=== PATIENT | female | born 1940 | race Caucasian/White ===

== ENCOUNTER → 2016-09-28 | Outpatient (CLI) | payer MEDICARE ==
[~2016-09-28] MED LIST: ARMOUR THYROID120 M1 PO; ARMOUR THYROID15 MG PO; ARMOUR THYROID90 MG PO; ASPIRIN ADULT L81 M1 PO; ATIVAN0.5 MG PO; AUGMENTIN 500500 M1 PO; CIPRO500 MG PO; LOPRESSOR50 MG PO; METOPROLOL25 MG PO; NEURONTIN300 MG PO; NORVASC5 MG PO; PLAQUENIL200 MG PO; PLAVIX75 MG PO; PREVACID30 M1 PO; PREVACID30 MG PO; PYRIDIUM200 MG PO; VICODIN 5/500 505 MG PO; ZOFRAN4 MG PO
== END | disposition home or self-care (01) ==
LOC: CARD 02:08
DX: I71.4 Abdominal aortic aneurysm, without rupture (principal); R01.1 Cardiac murmur, unspecified; R09.89 Other specified symptoms and signs involving the circulatory and respiratory systems

== ENCOUNTER 2016-11-02 01:43 | Inpatient (IN) | payer MEDICARE ==
[~2016-11-02] VITALS: Ht 160 cm; Wt 56.2 kg
--- NOTE | ~2016-11-02 | O ---
[place], [place] OPERATIVE NOTE NAME: FRANK VELASQUEZ UNIT #: [id number] ROOM: 426 DOCTOR: ZEESHAN EDDY MD BIRTHDATE: [birth year] DOS: 11/03/2016 GASTROENDOSCOPIC REPORT INDICATIONS: The patient has presented with chief complaint of gastric abdominal pain, renal insufficiency and borderline history of anemia in the past. Elevation of lipase slightly chronically; however, at 500 levels about. With normal LFTs. PROCEDURE: Today's procedure part of investigation is panendoscopy. PREMEDICATION: Versed and Diprivan. SCOPE: Olympus folding gastroscope q 10 video. REPORT: After putting the patient in the left lateral position and after application of lubricant to the scope, the scope was introduced. Thereafter, under direct visualization, I advanced through the length of esophagus without difficulty. Gastric pouch was entered. Gastritis seen. Duodenal bulb, second and third part within normal limit. No biopsies obtained due to the fact the patient was on anticoagulants. The patient extubated, tolerated procedure well. IMPRESSION: Gastritis, status post photographic series. PLAN AND DISCUSSION: Continuation laxatives regular diet. ACTIVITY: Ad laura. FOLLOWUP: As an outpatient. ZEESHAN EDDY MD CM:OPRECORD:OPERATIVE NOTE 1410 [id number] ZEESHAN EDDY MD 11/03/16 1559 interface
--- NOTE | ~2016-11-02 | WRIGHTHP ---
[place], [place] PATIENT HISTORY AND PHYSICAL EXAM NAME: FRANK VELASQUEZ [facility] #: [id number] UNIT #: [id number] ROOM: 426 DOCTOR: JOSHUA GUNN MD BIRTHDATE: [birth year] DOS: 11/02/2016 HISTORY OF PRESENT ILLNESS: The patient is 76 years old, not known to me. The patient comes in with complaints of severe abdominal pain. The patient states that she has had abdominal pain for about 2 weeks now on and off, but yesterday, the pain was so severe she was also nauseous and has had multiple emesis, and therefore decided to come into the Emergency Room. She was worked up in the ER with the CT scan and x-rays, which did not show any abnormalities other than a large amount of stool with diverticular disease without any evidence of diverticulitis. The patient was seen in the floor shortly after being brought up from the Emergency Room but then she stated that she had no pain and did not want any more pain medications because the medicine made her sick. She does not have any fever, any chills, any shortness of breath or chest pains. PAST MEDICAL HISTORY: Significant for; 1. Last hospitalization in 2014 with acute bronchitis and chest pain. 2. History of colonoscopy in 2014 showing diverticulosis. 3. Benign hypertension. 4. Hypothyroidism. 5. Left renal artery stenosis. 6. History of rheumatoid arthritis. MEDICATIONS: She is on are aspirin 81 daily, Plavix 75 daily, gabapentin 300 at bedtime, Plaquenil 200 b.i.d., Prevacid 30 daily, lorazepam 0.5 at bedtime, metoprolol 25 b.i.d., Hatley Thyroid 90 mg daily. SOCIAL HISTORY: She lives at home. Daughter lives with her. She does not use any alcohol. Does not smoke. PHYSICAL EXAMINATION: GENERAL: The patient is quite pale. VITAL SIGNS: Graphic trend shows a pressure of 148/63, pulse of 66, respirations 20, temperature 98.6. LUNGS: Diminished breath sounds. No wheezes, rales or rhonchi heard. HEART: Regular. ABDOMEN: Soft, multiple scars from previous surgery is present. EXTREMITIES: Without any edema. LABORATORY DATA: White cell count is , hemoglobin 12.5, hematocrit 37.8. Comprehensive glucose 88, BUN 17, creatinine 1.27. Electrolytes were normal. Lipase was 555. ASSESSMENT AND PLAN: 1. The patient who presents with acute abdominal pain, elevated lipase was seen. Possible mild pancreatitis. Consultation with Dr. Moreno is obtained. The patient is to be kept n.p.o. with IV fluids, IV pain medications and Zofran for nausea. 2. Obstipation could also be one of the reasons for complaints of abdominal pain, Colace will be added. 3. Also check HIDA scan and ultrasound of the gallbladder, rule out gallbladder [place], [place] PATIENT HISTORY AND PHYSICAL EXAM NAME: [id number] UNIT #: [id number] ROOM: 426 DOCTOR: JOSHUA GUNN MD BIRTHDATE: [birth year] stones and dyskinesia. 4. History of rheumatoid arthritis. Continue Plaquenil. JOSHUA GUNN MD CM:HISPHYS:PATIENT HISTORY AND PHYSICAL EXAMINATION 0731 [id number] JOSHUA GUNN MD 11/02/16 0843 interface
--- NOTE | ~2016-11-02 | O ---
[place], [place] OPERATIVE NOTE NAME: FRANK VELASQUEZ UNIT #: [id number] ROOM: 426 DOCTOR: ZEESHAN EDDY MD BIRTHDATE: [birth year] DOS: 11/03/2016 GASTROENDOSCOPIC REPORT HISTORY OF PRESENT ILLNESS: The patient is a 76-year-old who has presented with chief complaint of epigastric abdominal pain, bloated, abdominal pain, constipation. The patient was admitted from the Emergency Room because of abdominal distention and large stool retention was identified. Also, the patient continues with symptomatology of upper GI distress. CBC, H and H was 12 and 38. Differential within normal limits. PAST MEDICAL HISTORY: Hypertension, GERD, anemia, aneurysm, infrarenal. TIA respiratory infection histories. FAMILY HISTORY: Noncontributory except coronary artery disease. SOCIAL HISTORY: Passive smoker, nonalcohol consumer. ALLERGIES: To no known medication. MEDICATION: List reviewed. PROCEDURE: Today's procedure part of investigation of the EGD and colonoscopy. PREMEDICATION: Versed and Diprivan. SCOPE: Olympus forward-viewing colonoscope 10L video. REPORT: After putting the patient in the left lateral position and after application of lubricant to the scope, the scope was introduced; thereafter, under direct visualization, advanced through the length of colon without difficulty. ____ severe diverticulosis of sigmoid colon was identified. Base of the cecum explored, appendiceal orifice identified, and ileocecal valve was defined. Scope was gradually withdrawn from ascending, transverse, descending colon. The patient extubated, tolerated procedure well. IMPRESSION: Diverticulosis of severe degree in the sigmoid colon ____ colonic contents. PLAN ON DISCUSSION: We are going to proceed with panendoscopic assessment. [place], [place] OPERATIVE NOTE NAME: FRANK VELASQUEZ UNIT #: [id number] ROOM: 426 DOCTOR: ZEESHAN EDDY MD BIRTHDATE: [birth year] ZEESHAN EDDY MD CM:OPRECORD:OPERATIVE NOTE 1410 1554 ZEESHAN EDDY MD 11/03/16 5751 interface
--- NOTE | ~2016-11-02 | PN ---
[place], [place] PROGRESS NOTE NAME: FRANK VELASQUEZ [facility] #: [id number] UNIT #: [id number] ROOM: 426 DOCTOR: JOSHUA GUNN MD BIRTHDATE: [birth year] DATE: 11/03/16 SUBJECTIVE: The patient is scheduled for endoscopy and colonoscopy today. Does not have any new complaints. She denies having any chest pains or palpitations. PHYSICAL EXAMINATION: VITAL SIGNS: Blood pressure is 149/68, pulse is 61, respirations 20, temperature 97.6. LUNGS: Clear. HEART: Regular. ABDOMEN: Soft. EXTREMITIES: Without any edema. ASSESSMENT AND PLAN: 1. The patient who presents with abdominal pain with diagnosis of obstipation. The patient is scheduled for an endoscopy, colonoscopy. 2. Mild pancreatitis. Amylase and lipase seem to be improving. Lipase was 555, which is down to 417, should be able to start on a diet and discharged to home after the scope is done. JOSHUA GUNN MD CM:PNTRANS 0727 [id number] JOSHUA GUNN MD 11/06/16 1418 ROSIE DURAN.DWAYNER
[2016-11-02 01:48] VITALS: BP 157/77
[2016-11-02] MEDS ORDERED: METOPROLOL25 MG PO (01:51)
[2016-11-02] MEDS ORDERED: ARMOUR THYROID90 M1 PO (01:53)
[2016-11-02 02:41] LABS: BILIRUBIN NEGATIVE (NEGATIVE); BLOOD NEGATIVE (NEGATIVE); CLARITY CLEAR (CLEAR); COLOR YELLOW (YELLOW); GLUCOSE NEGATIVE (NEGATIVE); KETONE NEGATIVE (NEGATIVE); LEUKO ESTERASE 1+ (NEGATIVE); NITRITE NEGATIVE (NEGATIVE); PH 6.5 (5.0-9.0); PROTEIN NEGATIVE (NEGATIVE); SPECIFIC GRAVITY <= 1.005 (1.005-1.030); UROBILINOGEN 0.2 E.U./dl (0.2-1.0)
[2016-11-02 02:42] LABS: BASO % 0.6 % (0.0-1.0); EOS # 0.3 10*3/uL (0.0-0.4); EOS % 5.5 % (1.0-4.0); HEMATOCRIT 37.8 % (37.0-47.0); HEMOGLOBIN 12.5 g/dl (12.0-16.0); LYMPH # 1.7 10*3/uL (1.3-4.4); LYMPH % 27.8 % (27.0-41.0); MEAN CORPUSCULAR HGB 27.8 pg (27.0-31.0); MEAN CORPUSCULAR HGB CONC 33.1 g/dl (33.0-37.0); MEAN PLATELET VOLUME 9.1 fl (9.6-12.3); MONO # 0.7 10*3/uL (0.1-1.0); MONO % 11.4 % (3.0-9.0); NEUT # 3.4 10*3/uL (2.3-7.9); NEUT % 54.5 % (47.0-73.0); PLATELET COUNT AUTOMATED 241 10*3/uL (130-400); RED CELL DISTRI WIDTH 13.9 % (0-14.5); WHITE BLOOD COUNT 6.2 10*3/uL (4.8-10.8)
[2016-11-02 02:47] LABS: EPITHELIAL CELLS 0-5; URINE REFLEX COMMENT YES (NO)
[2016-11-02 02:52] LABS: PROTHROMBIN TIME 10.8 SECONDS (9.0-12.4)
[2016-11-02 02:59] LABS: ALBUMIN 3.8 gm/dl (3.1-4.5); ALKALINE PHOSPHATASE 95 U/L (45-117); BILIRUBIN, TOTAL 0.3 mg/dl (0.2-1.0); BUN 17 mg/dl (7-24); CARBON DIOXIDE 27 mmol/L (21-32); CHLORIDE 103 mmol/L (98-107); EST GLOM FILT AFRICAN AMERICAN 50 ml/min; GLUCOSE 88 mg/dL (65-99); POTASSIUM 4.2 mmol/L (3.5-5.1); SGOT/AST 25 IU/L (3-35); SGPT/ALT 18 U/L (12-78); SODIUM 140 mmol/L (136-145); TOTAL PROTEIN 7.3 gm/dL (6.4-8.2)
[2016-11-02 03:00] LABS: C-REACTIVE PROTEIN < 0.29 MG/DL (0-0.3); TROPONIN I 0.026 ng/ml (<0.045)
[2016-11-02 04:58] VITALS: BP 143/73
[2016-11-02 05:30] VITALS: BP 148/63
[2016-11-02 08:00] VITALS: BP 153/50
[2016-11-02 16:00] VITALS: BP 143/50
[2016-11-02 20:00] VITALS: BP 123/54
[2016-11-03] VITALS: BP 149/68
[2016-11-03 06:10] LABS: BASO % 0.5 % (0.0-1.0); EOS # 0.2 10*3/uL (0.0-0.4); EOS % 3.2 % (1.0-4.0); HEMOGLOBIN 12.3 g/dl (12.0-16.0); LYMPH # 1.3 10*3/uL (1.3-4.4); MEAN CORPUSCULAR HGB 28.1 pg (27.0-31.0); MEAN CORPUSCULAR HGB CONC 32.4 g/dl (33.0-37.0); MONO # 0.7 10*3/uL (0.1-1.0); MONO % 10.5 % (3.0-9.0); NEUT # 4.1 10*3/uL (2.3-7.9); NEUT % 64.6 % (47.0-73.0); PLATELET COUNT AUTOMATED 222 10*3/uL (130-400); RED BLOOD COUNT 4.37 10*6/uL (4.10-5.10); RED CELL DISTRI WIDTH 13.8 % (0-14.5); WHITE BLOOD COUNT 6.3 10*3/uL (4.8-10.8)
[2016-11-03 08:00] VITALS: BP 145/53
[2016-11-03 13:53] VITALS: BP 162/65
[2016-11-03 14:05] VITALS: BP 177/64
[2016-11-03 14:18] VITALS: BP 164/67
== END 2016-11-03 14:52 | disposition home or self-care (01) | DRG 391 ==
LOC: ED 01:43 → EDHOLD 04:28 → 4E 04:28
PROVIDERS: Emergency Medicine Emergency Medical Services; Internal Medicine
PROC: 0DJD8ZZ Inspection of Lower Intestinal Tract, Via Natural or Artificial Opening Endoscopic (ICD-10-PCS; principal; 2016-11-03)
PROC: 0DJ08ZZ Inspection of Upper Intestinal Tract, Via Natural or Artificial Opening Endoscopic (ICD-10-PCS; principal; 2016-11-03)
DX: K29.70 Gastritis, unspecified, without bleeding (principal); K85.90 Acute pancreatitis without necrosis or infection, unspecified; M06.9 Rheumatoid arthritis, unspecified; I10 Essential (primary) hypertension; K59.00 Constipation, unspecified; K57.30 Diverticulosis of large intestine without perforation or abscess without bleeding; K21.9 Gastro-esophageal reflux disease without esophagitis; E03.9 Hypothyroidism, unspecified; Z79.82 Long term (current) use of aspirin; Z79.899 Other long term (current) drug therapy; Z79.01 Long term (current) use of anticoagulants

== ENCOUNTER → 2017-02-15 | Outpatient (CLI) | payer MEDICARE ==
[~2017-02-15] MED LIST changes: +ARMOUR THYROID90 M1 PO
[2017-02-15 09:58] LABS: BILIRUBIN NEGATIVE (NEGATIVE); BLOOD NEGATIVE (NEGATIVE); CLARITY CLEAR (CLEAR); COLOR YELLOW (YELLOW); GLUCOSE NEGATIVE (NEGATIVE); KETONE NEGATIVE (NEGATIVE); LEUKO ESTERASE 1+ (NEGATIVE); NITRITE NEGATIVE (NEGATIVE); PH 5.5 (5.0-9.0); PROTEIN NEGATIVE (NEGATIVE); SPECIFIC GRAVITY 1.025 (1.005-1.030); UROBILINOGEN 0.2 E.U./dl (0.2-1.0)
[2017-02-15 10:02] LABS: BASO # 0.1 10*3/uL (0.0-0.1); BASO % 0.7 % (0.0-1.0); EOS # 0.3 10*3/uL (0.0-0.4); EOS % 3.7 % (1.0-4.0); HEMATOCRIT 38.2 % (37.0-47.0); HEMOGLOBIN 12.5 g/dl (12.0-16.0); LYMPH # 1.2 10*3/uL (1.3-4.4); LYMPH % 16.6 % (27.0-41.0); MEAN CELL VOLUME 87.8 fl (81.0-99.0); MEAN CORPUSCULAR HGB 28.7 pg (27.0-31.0); MEAN CORPUSCULAR HGB CONC 32.7 g/dl (33.0-37.0); MEAN PLATELET VOLUME 9.1 fl (9.6-12.3); MONO # 0.6 10*3/uL (0.1-1.0); MONO % 8.9 % (3.0-9.0); NEUT # 4.8 10*3/uL (2.3-7.9); NEUT % 69.8 % (47.0-73.0); PLATELET COUNT AUTOMATED 237 10*3/uL (130-400); RED BLOOD COUNT 4.35 10*6/uL (4.10-5.10); RED CELL DISTRI WIDTH 13.9 % (0-14.5); WHITE BLOOD COUNT 6.9 10*3/uL (4.8-10.8)
[2017-02-15 10:05] LABS: URINE TP/CRE RATIO 0.1 (<0.21)
[2017-02-15 10:18] LABS: RBC 0-2 rbc/hpf (0-2); URINE REFLEX COMMENT YES (NO)
[2017-02-15 10:27] LABS: ALBUMIN 3.6 gm/dl (3.1-4.5); MAGNESIUM 2.3 mg/dL (1.5-2.1); POTASSIUM 4.4 mmol/L (3.5-5.1)
[2017-02-15 10:56] LABS: FERRITIN 23.7 ng/mL (10.0-291.0); PTH INTACT 71.7 pg/mL (14.0-72.0); VITAMIN D, 25-HYDROXY 27.1 ng/mL (30-100)
== END | disposition home or self-care (01) ==
LOC: LAB 09:06
PROVIDERS: Internal Medicine Nephrology
DX: N18.3 Chronic kidney disease, stage 3 (moderate) (principal); N25.81 Secondary hyperparathyroidism of renal origin; R79.89 Other specified abnormal findings of blood chemistry; D63.1 Anemia in chronic kidney disease; Z79.899 Other long term (current) drug therapy

== ENCOUNTER → 2017-03-19 | Outpatient (CLI) | payer MEDICARE ==
[2017-03-19 09:27] LABS: BASO # 0.1 10*3/uL (0.0-0.1); BASO % 0.8 % (0.0-1.0); EOS # 0.3 10*3/uL (0.0-0.4); EOS % 4.8 % (1.0-4.0); HEMATOCRIT 39.1 % (37.0-47.0); HEMOGLOBIN 12.6 g/dl (12.0-16.0); LYMPH # 1.4 10*3/uL (1.3-4.4); LYMPH % 21.2 % (27.0-41.0); MEAN CELL VOLUME 87.9 fl (81.0-99.0); MEAN CORPUSCULAR HGB 28.3 pg (27.0-31.0); MEAN CORPUSCULAR HGB CONC 32.2 g/dl (33.0-37.0); MEAN PLATELET VOLUME 8.8 fl (9.6-12.3); MONO # 0.6 10*3/uL (0.1-1.0); MONO % 9.5 % (3.0-9.0); NEUT # 4.2 10*3/uL (2.3-7.9); NEUT % 63.4 % (47.0-73.0); PLATELET COUNT AUTOMATED 278 10*3/uL (130-400); RED BLOOD COUNT 4.45 10*6/uL (4.10-5.10); RED CELL DISTRI WIDTH 13.8 % (0-14.5); WHITE BLOOD COUNT 6.6 10*3/uL (4.8-10.8)
[2017-03-19 09:45] LABS: CREATININE 1.43 mg/dL (0.55-1.02); POTASSIUM 4.4 mmol/L (3.5-5.1)
== END | disposition home or self-care (01) ==
LOC: LAB 08:50
PROVIDERS: Internal Medicine Cardiovascular Disease
DX: I10 Essential (primary) hypertension (principal)

== ENCOUNTER → 2017-06-08 | Outpatient (CLI) | payer MEDICARE ==
[2017-06-08 08:54] LABS: BASO # 0.1 10*3/uL (0.0-0.1); BASO % 0.9 % (0.0-1.0); EOS # 0.3 10*3/uL (0.0-0.4); EOS % 3.7 % (1.0-4.0); HEMATOCRIT 38.8 % (37.0-47.0); HEMOGLOBIN 12.8 g/dl (12.0-16.0); LYMPH # 1.3 10*3/uL (1.3-4.4); LYMPH % 17.9 % (27.0-41.0); MEAN CELL VOLUME 87.6 fl (81.0-99.0); MEAN CORPUSCULAR HGB 28.9 pg (27.0-31.0); MEAN PLATELET VOLUME 9.2 fl (9.6-12.3); MONO # 0.7 10*3/uL (0.1-1.0); MONO % 10.1 % (3.0-9.0); NEUT # 4.7 10*3/uL (2.3-7.9); PLATELET COUNT AUTOMATED 250 10*3/uL (130-400); RED BLOOD COUNT 4.43 10*6/uL (4.10-5.10); RED CELL DISTRI WIDTH 13.6 % (0-14.5)
[2017-06-08 09:12] LABS: ALBUMIN 3.7 gm/dl (3.1-4.5); CREATININE 1.31 mg/dL (0.55-1.02); POTASSIUM 4.7 mmol/L (3.5-5.1); TOTAL PROTEIN 7.2 gm/dL (6.4-8.2)
== END ==
LOC: LAB 08:23
PROVIDERS: Family Medicine
DX: I71.4 Abdominal aortic aneurysm, without rupture (principal); I15.1 Hypertension secondary to other renal disorders; E89.0 Postprocedural hypothyroidism; M06.9 Rheumatoid arthritis, unspecified; Z79.899 Other long term (current) drug therapy

== ENCOUNTER 2017-08-25 10:06 | Emergency (ER) | payer MEDICARE ==
[~2017-08-25] VITALS: Ht 160 cm; Wt 56.7 kg
[2017-08-25 10:26] VITALS: BP 149/62
== END 2017-08-25 13:01 | disposition home or self-care (01) ==
LOC: ED 10:06
DX: S20.212A Contusion of left front wall of thorax, initial encounter (principal); M85.88 Other specified disorders of bone density and structure, other site; M79.7 Fibromyalgia; K21.9 Gastro-esophageal reflux disease without esophagitis; I10 Essential (primary) hypertension; E03.9 Hypothyroidism, unspecified; M06.9 Rheumatoid arthritis, unspecified; Z86.73 Personal history of transient ischemic attack (TIA), and cerebral infarction without residual deficits; Z90.710 Acquired absence of both cervix and uterus; Z90.89 Acquired absence of other organs; Z87.891 Personal history of nicotine dependence; Z79.82 Long term (current) use of aspirin; Z79.899 Other long term (current) drug therapy; W07.XXXA Fall from chair, initial encounter; Y93.89 Activity, other specified; Y92.89 Other specified places as the place of occurrence of the external cause; Y99.9 Unspecified external cause status

== ENCOUNTER → 2017-08-29 | Outpatient (CLI) | payer MEDICARE ==
[2017-08-29 08:13] LABS: POTASSIUM 4.5 mmol/L (3.5-5.1)
[2017-08-29 08:25] LABS: CREATININE 1.49 mg/dL (0.55-1.02)
== END | disposition home or self-care (01) ==
LOC: LAB 07:22
PROVIDERS: Internal Medicine Cardiovascular Disease
DX: I10 Essential (primary) hypertension (principal)

== ENCOUNTER → 2017-09-28 | Outpatient (CLI) | payer MEDICARE | END | disposition home or self-care (01) | LOC: US 10:29 | DX: I65.23 Occlusion and stenosis of bilateral carotid arteries (principal) ==

== ENCOUNTER → 2017-11-26 | Outpatient (CLI) | payer MEDICARE | END | disposition home or self-care (01) | LOC: US 09:14 | DX: I71.4 Abdominal aortic aneurysm, without rupture (principal) ==

== ENCOUNTER → 2018-08-01 | Outpatient (CLI) | payer MEDICARE ==
[2018-08-01 09:39] LABS: BILIRUBIN NEGATIVE (NEGATIVE); BLOOD NEGATIVE (NEGATIVE); CLARITY SL CLOUDY (CLEAR); COLOR YELLOW (YELLOW); GLUCOSE NEGATIVE (NEGATIVE); KETONE NEGATIVE (NEGATIVE); LEUKO ESTERASE 2+ (NEGATIVE); NITRITE NEGATIVE (NEGATIVE); PH 5.5 (5.0-9.0); SPECIFIC GRAVITY 1.025 (1.005-1.030); UROBILINOGEN 0.2 E.U./dl (0.2-1.0)
[2018-08-01 10:12] LABS: BACTERIA TRACE
[2018-08-01 10:12] LABS: POTASSIUM 4.4 mmol/L (3.5-5.1)
[2018-08-01 10:20] LABS: ALBUMIN 3.5 gm/dl (3.1-4.5); CREATININE 1.36 mg/dL (0.55-1.02); PHOSPHOROUS 4.6 mg/dL (2.5-4.9)
[2018-08-01 10:23] LABS: BASO # 0.1 10*3/uL (0.0-0.1); BASO % 1.2 % (0.0-1.0); EOS # 0.4 10*3/uL (0.0-0.4); EOS % 5.5 % (1.0-4.0); HEMATOCRIT 37.6 % (37.0-47.0); HEMOGLOBIN 12.2 g/dl (12.0-16.0); LYMPH # 1.6 10*3/uL (1.3-4.4); LYMPH % 24.5 % (27.0-41.0); MEAN CELL VOLUME 90.4 fl (81.0-99.0); MEAN CORPUSCULAR HGB 29.3 pg (27.0-31.0); MEAN CORPUSCULAR HGB CONC 32.4 g/dl (33.0-37.0); MEAN PLATELET VOLUME 9.5 fl (9.6-12.3); MONO # 0.7 10*3/uL (0.1-1.0); MONO % 10.9 % (3.0-9.0); NEUT # 3.8 10*3/uL (2.3-7.9); NEUT % 57.6 % (47.0-73.0); PLATELET COUNT AUTOMATED 243 10*3/uL (130-400); RED BLOOD COUNT 4.16 10*6/uL (4.10-5.10); RED CELL DISTRI WIDTH 14.5 % (0-14.5); WHITE BLOOD COUNT 6.6 10*3/uL (4.8-10.8)
[2018-08-01 10:42] LABS: PTH INTACT 77.3 pg/mL (18.5-88.0); VITAMIN D, 25-HYDROXY 25.8 ng/mL (30-100)
== END | disposition home or self-care (01) ==
LOC: LAB 08:51
PROVIDERS: Internal Medicine Nephrology
DX: N18.3 Chronic kidney disease, stage 3 (moderate) (principal); D63.1 Anemia in chronic kidney disease; N25.81 Secondary hyperparathyroidism of renal origin; Z79.899 Other long term (current) drug therapy

== ENCOUNTER → 2019-01-23 | Outpatient (CLI) | payer MEDICARE ==
[2019-01-23 16:57] LABS: HEMATOCRIT 37.7 % (37.0-47.0); HEMOGLOBIN 12.4 g/dl (12.0-16.0)
[2019-01-23 17:22] LABS: CREATININE 1.38 mg/dL (0.55-1.02); PHOSPHOROUS 3.8 mg/dL (2.5-4.9); POTASSIUM 4.3 mmol/L (3.5-5.1)
[2019-01-23 17:23] LABS: BILIRUBIN NEGATIVE (NEGATIVE); BLOOD NEGATIVE (NEGATIVE); CLARITY CLEAR (CLEAR); COLOR YELLOW (YELLOW); GLUCOSE NEGATIVE (NEGATIVE); KETONE NEGATIVE (NEGATIVE); LEUKO ESTERASE 1+ (NEGATIVE); NITRITE NEGATIVE (NEGATIVE); PH 5.5 (5.0-9.0); SPECIFIC GRAVITY <= 1.005 (1.005-1.030); UROBILINOGEN 0.2 E.U./dl (0.2-1.0)
[2019-01-23 17:30] LABS: BACTERIA TRACE
[2019-01-23 17:35] LABS: PTH INTACT 86.1 pg/mL (18.5-88.0); VITAMIN D, 25-HYDROXY 43.9 ng/mL (30-100)
[2019-01-24 10:09] LABS: CREATININE,URINE 38.5 mg/dL (Not Estab.); MICRO ALBUMIN/CRE RATIO 12.2 (0.0-30.0)
== END | disposition home or self-care (01) ==
LOC: LAB 16:29 → US 17:00
PROVIDERS: Internal Medicine Nephrology
DX: E55.9 Vitamin D deficiency, unspecified (principal); I12.9 Hypertensive chronic kidney disease with stage 1 through stage 4 chronic kidney disease, or unspecified chronic kidney disease; N18.9 Chronic kidney disease, unspecified

== ENCOUNTER → 2019-05-22 | Outpatient (CLI) | payer MEDICARE ==
[2019-05-22 11:01] LABS: HEMATOCRIT 39.1 % (37.0-47.0); HEMOGLOBIN 12.4 g/dl (12.0-16.0)
[2019-05-22 11:21] LABS: BILIRUBIN NEGATIVE (NEGATIVE); BLOOD NEGATIVE (NEGATIVE); CLARITY CLEAR (CLEAR); COLOR YELLOW (YELLOW); GLUCOSE NEGATIVE (NEGATIVE); KETONE NEGATIVE (NEGATIVE); LEUKO ESTERASE 1+ (NEGATIVE); NITRITE NEGATIVE (NEGATIVE); PH 6.5 (5.0-9.0); SPECIFIC GRAVITY 1.025 (1.005-1.030); UROBILINOGEN 0.2 E.U./dl (0.2-1.0)
[2019-05-22 11:30] LABS: CREATININE 1.42 mg/dL (0.55-1.02); POTASSIUM 5.3 mmol/L (3.5-5.1)
[2019-05-22 11:46] LABS: PTH INTACT 82.8 pg/mL (18.5-88.0); VITAMIN D, 25-HYDROXY 55.2 ng/mL (30-100)
[2019-05-23 10:07] LABS: CREATININE,URINE 142.2 mg/dL (Not Estab.); MICRO ALBUMIN/CRE RATIO 20.3 (0.0-30.0)
== END | disposition home or self-care (01) ==
LOC: LAB 10:39
PROVIDERS: Internal Medicine Nephrology
DX: N18.3 Chronic kidney disease, stage 3 (moderate) (principal)

== ENCOUNTER → 2019-05-28 | Outpatient (CLI) | payer MEDICARE ==
[2019-05-28 12:50] LABS: CREATININE 1.46 mg/dL (0.55-1.02); POTASSIUM 4.5 mmol/L (3.5-5.1)
== END | disposition home or self-care (01) ==
LOC: LAB 11:49
PROVIDERS: Internal Medicine Nephrology
DX: N18.3 Chronic kidney disease, stage 3 (moderate) (principal)

== ENCOUNTER → 2019-08-11 | Outpatient (CLI) | payer MEDICARE ==
[2019-08-11 12:22] LABS: HEMATOCRIT 38.2 % (37.0-47.0); HEMOGLOBIN 12.3 g/dl (12.0-16.0)
[2019-08-11 12:37] LABS: CREATININE 1.49 mg/dL (0.55-1.02); PHOSPHOROUS 4.2 mg/dL (2.5-4.9); POTASSIUM 4.3 mmol/L (3.5-5.1)
[2019-08-11 12:47] LABS: BILIRUBIN NEGATIVE (NEGATIVE); BLOOD NEGATIVE (NEGATIVE); CLARITY SL CLOUDY (CLEAR); COLOR YELLOW (YELLOW); GLUCOSE NEGATIVE (NEGATIVE); KETONE NEGATIVE (NEGATIVE); LEUKO ESTERASE 1+ (NEGATIVE); NITRITE NEGATIVE (NEGATIVE); SPECIFIC GRAVITY 1.015 (1.005-1.030); UROBILINOGEN 0.2 E.U./dl (0.2-1.0)
[2019-08-11 12:48] LABS: BACTERIA TRACE; MUCOUS 1+
[2019-08-11 13:35] LABS: VITAMIN D, 25-HYDROXY 52.3 ng/mL (30-100)
[2019-08-11 13:36] LABS: PTH INTACT 75.6 pg/mL (18.5-88.0)
[2019-08-12 11:09] LABS: CREATININE,URINE 47.6 mg/dL (Not Estab.)
== END | disposition home or self-care (01) ==
LOC: LAB 11:50
PROVIDERS: Internal Medicine
DX: N18.3 Chronic kidney disease, stage 3 (moderate) (principal); E55.9 Vitamin D deficiency, unspecified; Z79.82 Long term (current) use of aspirin; Z79.899 Other long term (current) drug therapy

== ENCOUNTER → 2020-02-06 | Outpatient (CLI) | payer MEDICARE ==
[2020-02-06 07:59] LABS: HEMATOCRIT 37.4 % (37.0-47.0)
[2020-02-06 08:29] LABS: ALBUMIN 3.5 gm/dl (3.1-4.5); CREATININE 1.45 mg/dL (0.55-1.02); POTASSIUM 4.3 mmol/L (3.5-5.1)
[2020-02-07 07:09] LABS: CREATININE,URINE 103.1 mg/dL (Not Estab.)
== END | disposition home or self-care (01) ==
LOC: LAB 07:18
PROVIDERS: Internal Medicine
DX: N18.3 Chronic kidney disease, stage 3 (moderate) (principal)

== ENCOUNTER 2020-03-02 20:14 | Observation (INO) | payer MEDICARE ==
[~2020-03-02] VITALS: Ht 160 cm; Wt 60.1 kg
[2020-03-02 20:21] VITALS: BP 164/64
--- NOTE | 2020-03-02 20:29 | NUR ---
PATIENT DENIES CHEST "PRESSURE" AT THIS TIME. STATES THAT THE ASPRIN RELIEVED THE DISCOMFORT. WILL CONTINUE TO MONITOR.
[2020-03-02 20:32] LABS: BASO % 0.5 % (0.0-1.0); EOS # 0.3 10*3/uL (0.0-0.4); EOS % 3.6 % (1.0-4.0); HEMATOCRIT 34.1 % (37.0-47.0); LYMPH # 1.7 10*3/uL (1.3-4.4); MEAN CELL VOLUME 86.3 fl (81.0-99.0); MEAN CORPUSCULAR HGB 28.4 pg (27.0-31.0); MEAN CORPUSCULAR HGB CONC 32.8 g/dl (33.0-37.0); MEAN PLATELET VOLUME 8.8 fl (9.6-12.3); MONO # 0.9 10*3/uL (0.1-1.0); MONO % 11.6 % (3.0-9.0); NEUT # 4.8 10*3/uL (2.3-7.9); NEUT % 61.9 % (47.0-73.0); PLATELET COUNT AUTOMATED 328 10*3/uL (130-400); RED BLOOD COUNT 3.95 10*6/uL (4.10-5.10); RED CELL DISTRI WIDTH 13.5 % (0-14.5); WHITE BLOOD COUNT 7.7 10*3/uL (4.8-10.8)
[2020-03-02 20:43] LABS: ACT PARTIAL THROMBO TIME 28.3 SECONDS (20.0-32.1)
[2020-03-02 20:49] LABS: ALBUMIN 3.5 gm/dl (3.1-4.5); CREATININE 1.32 mg/dL (0.55-1.02); POTASSIUM 4.1 mmol/L (3.5-5.1); TOTAL PROTEIN 7.1 gm/dL (6.4-8.2)
[2020-03-02 20:53] LABS: TROPONIN I 0.134 ng/ml (<0.045)
--- NOTE | 2020-03-02 23:05 | NUR ---
PT PUT ON HER CALL LIGHT. PLACED PT ON BED DAMON AT THIS TIME. PT WAS TOLD TO PUT CNA PER DIEM TAVAREZ WHEN SHE WAS FINISHED.
[2020-03-02 23:27] VITALS: BP 157/80
[2020-03-03] VITALS (7 sets, daily range): BP systolic 138–170; BP diastolic 57–91
--- NOTE | 2020-03-03 | NUR ---
Transfer of care from Chela tsai.
--- NOTE | 2020-03-03 00:10 | NUR ---
In to see pt at this time.Pt states she is doing ok and does not need anything.Pt is normal sinus on the monitor at this time.Pt has clear lung sounds in uppers and diminshed in bases.Pt has discoloration noted to left arm and swelling from prevoius fall.Pt denines numbness and tingling at this time and has a good radial pulse.Pt has postive bowel sounds also at this time.Pt has 22 gauge which is clamped at this time in rac.Pt denines pain at this time.
--- NOTE | 2020-03-03 01:18 | NUR ---
Pt currently sleeping at this time.
--- NOTE | 2020-03-03 02:30 | NUR ---
In to see pt at this time.Pt voided moderate amount of yellow urine at this time.Per pt she does not need anything.
[2020-03-03] MEDS ORDERED: LEVOTHYROXINE137 MCG PO (03:05)
[2020-03-03] MEDS ORDERED: HYDROXYCHLOROQ200 M1 PO (03:06)
[2020-03-03] MEDS ORDERED: LINZESS 72 MCG (03:06)
[2020-03-03] MEDS ORDERED: ATORVASTATIN CA20 M1 PO (03:07)
[2020-03-03] MEDS ORDERED: CYCLOBENZAPRINE5 M3 R (03:08)
[2020-03-03] MEDS ORDERED: LINACLOTIDE 72 MCG (03:09)
[2020-03-03] MEDS ORDERED: ASPIRIN CHEWABL81 MG PO (03:16)
--- NOTE | 2020-03-03 03:30 | NUR ---
In to see pt at this time.Pt currently voided small amount of yellow urine and yari care done.Pt states she does not need anything.
--- NOTE | 2020-03-03 03:48 | NUR ---
Attempted to call consult at this time.Office stated they do not take messages at this time and to call back at 6am.
[2020-03-03 06:11] LABS: BASO # 0.1 10*3/uL (0.0-0.1); BASO % 1.1 % (0.0-1.0); EOS # 0.4 10*3/uL (0.0-0.4); EOS % 6.2 % (1.0-4.0); HEMATOCRIT 35.4 % (37.0-47.0); LYMPH # 1.4 10*3/uL (1.3-4.4); LYMPH % 22.7 % (27.0-41.0); MEAN CELL VOLUME 85.3 fl (81.0-99.0); MEAN CORPUSCULAR HGB 27.5 pg (27.0-31.0); MEAN CORPUSCULAR HGB CONC 32.2 g/dl (33.0-37.0); MEAN PLATELET VOLUME 9.1 fl (9.6-12.3); MONO # 0.8 10*3/uL (0.1-1.0); MONO % 12.3 % (3.0-9.0); NEUT # 3.5 10*3/uL (2.3-7.9); NEUT % 57.2 % (47.0-73.0); PLATELET COUNT AUTOMATED 343 10*3/uL (130-400); RED BLOOD COUNT 4.15 10*6/uL (4.10-5.10); RED CELL DISTRI WIDTH 13.2 % (0-14.5); WHITE BLOOD COUNT 6.2 10*3/uL (4.8-10.8)
--- NOTE | 2020-03-03 06:14 | NUR ---
Pt still currently sleeping at this time.
[2020-03-03 06:15] LABS: CREATININE 1.2 mg/dL (0.55-1.02)
--- NOTE | 2020-03-03 06:22 | NUR ---
Attempted to call consult at this time.Went through office and then went straight to voicemail which is not set up at this time.
[2020-03-03 06:23] LABS: THYROID STIM HORMONE (HS) 3.95 uIU/ml (0.358-4.75)
--- NOTE | 2020-03-03 06:41 | NUR ---
Pt still sleeping at this time and protonix not given at this time.
--- NOTE | 2020-03-03 07:04 | NUR ---
Transfer of care to Gisel tsai.
--- NOTE | 2020-03-03 07:05 | NUR ---
REPORT FROM JESSI PAGAN AT THIS TIME.
--- NOTE | 2020-03-03 07:55 | NUR ---
PATIENT TAKEN TO 5TH FLOOR BY THIS NURSE. NO CHANGE IN PATIENT STATUS.
--- NOTE | 2020-03-03 08:15 | NUR ---
A 80, admitted to 5E, under the services of MYLENE Dunn DO with a diagnosis of CHEST PRESSURE. Chief complaint is CHEST PRESSURE. Patient arrived via bed from ER. Monitor applied. Initial assessment completed. Vital signs taken and recorded. MYLENE DUNN DO notified of admission to the unit. Orders received. See assessment for past medical history, medications and allergies. Patient and/or family oriented to unit. [facility] visitation policy reviewed. Clothing/patient valuable form completed. JHONATAN NICHOLS
--- NOTE | 2020-03-03 08:36 | NUR ---
Sr Vice President in to talk to patient. Patient states lives at ALONE. There are MANY steps in the home. Physician: DR. PRATHER [facility] Home health services: [facility] Patient's level of ADLs: INDEPENDENT Patient has working utilities: YES DME: [facility] Follow-up physician's appointment after d/c: WILL BE MADE BY RN HOSPITALIST COORDINATOR Does patient want to access PORTAL?: NO Discharge plan JACK MACHINE OPERATOR SPOKE TO THE PATIENT. PATIENT STATED THAT SHE LIVES AT HOME ALONE WITH HER DAUGHTER CHECKING IN ON HER FREQUENTLY. PATIENT STATES THAT SHE STILL DRIVES AND HAS BEEN INDEPENDENT WITH ADLS/IADLS. PATIENT STATED THAT PRIOR TO THIS ADMISSION SHE HAD 2 FALLS WITHIN AN HOUR OF EACH OTHER. PATIENT THEN WENT TO [facility] FOR A HEART CATH, BUT SHE STATED THEY WERE FOCUSING ON HER SHOULDER. PATIENT STATED THE DOCTOR ALSO REMOVED ALL HER BLOOD PRESSURE MEDICATIONS. PATIENT STATES SHE CURRENTLY HAS [facility] (RNS,PT/OT, AND AIDES). WHEN THE PATIENT WAS ASKED IF SHE WOULD LIKE TO GO TO SNF VS HOME WITH HH, THE PATIENT STATED SHE WOULD RETURN HOME WITH RESUMPTION OF [facility]. PATIENT STATED SHE WILL HAVE A RIDE UPON DISCHARGE. CASE MANAGEMENT TO FOLLOW. CORA MANE
--- NOTE | 2020-03-03 09:39 | NUR ---
DR. MILLER NOTIFIED OF CONSULT.
--- NOTE | 2020-03-03 22:34 | NUR ---
PATIENT REQUESTING TYLENOL FOR COMPLAINTS OF HEADACHE. MEDICATED AT THIS TIME. WILL CONTINUE TO MONITOR.
[2020-03-04] VITALS: BP 153/63
--- NOTE | 2020-03-04 00:30 | NUR ---
PATIENT SLEEPING, NO SIGNS OF DISTRESS. WILL CONTINUE TO MONITOR.
--- NOTE | 2020-03-04 07:28 | NUR ---
PATIENT GIVEN WASH CLOTHES AND TOWELS TO GET WASHED UP
--- NOTE | 2020-03-04 07:54 | NUR ---
IN TO SEE PATIENT REGARDING CONSULT.
[2020-03-04 08:00] VITALS: BP 160/61
--- NOTE | 2020-03-04 09:20 | NUR ---
TYLENOL GIVEN PER PRN ORDER FOR C/O HEADACHE. BP STABLE. WILL MONITOR EFFECTIVENESS.
--- NOTE | 2020-03-04 10:17 | NUR ---
ATTEMPTED TO REACH REGARDING DISCHARGE. NO ANSWER AT THIS TIME. WILL TRY AGAIN SHORTLY.
--- NOTE | 2020-03-04 11:10 | NUR ---
ACCOUNT EXECUTIVE METALWORKING SPOKE WITH THE PATIENT AT BEDSIDE. PATIENT STATED THAT SHE HAS NO NEW NEEDS TO ADDRESS AT THIS TIME. PATIENT STATED SHE WILL RETURN HOME AND RESUME HER [facility].
[2020-03-04 12:00] VITALS: BP 148/61
--- NOTE | 2020-03-04 14:13 | NUR ---
ACADEMIC GUIDANCE SPECIALIST FAXED RESUMPTION ORDER TO [facility].
--- NOTE | 2020-03-04 15:53 | NUR ---
Discharge instructions reviewed with patient/family. Patient receptive and verbalizes understanding. Follow-up care arranged. Written instructions given to patient/family. DARREN JONES.
== END 2020-03-04 15:53 | disposition home or self-care (01) ==
LOC: ED 20:14 → EDHOLD 22:07 → 5E 03-03 07:21
PROVIDERS: Emergency Medicine; Student in an Organized Health Care Education/Training Program; ADMIT Internal Medicine
DX: R07.89 Other chest pain (principal); E87.1 Hypo-osmolality and hyponatremia; R79.89 Other specified abnormal findings of blood chemistry; D64.9 Anemia, unspecified; E03.9 Hypothyroidism, unspecified; M06.9 Rheumatoid arthritis, unspecified; M79.7 Fibromyalgia; K21.9 Gastro-esophageal reflux disease without esophagitis; I12.9 Hypertensive chronic kidney disease with stage 1 through stage 4 chronic kidney disease, or unspecified chronic kidney disease; N18.3 Chronic kidney disease, stage 3 (moderate); R00.1 Bradycardia, unspecified

== ENCOUNTER 2020-03-26 18:11 | Inpatient (IN) | payer MEDICARE ==
[~2020-03-26] VITALS: Ht 160 cm; Wt 58.6 kg
[~2020-03-26 18:11] MED LIST changes: +ASPIRIN CHEWABL81 MG PO; +ATORVASTATIN CA20 M1 PO; +CYCLOBENZAPRINE5 M3 R; +HYDROXYCHLOROQ200 M1 PO; +LEVOTHYROXINE137 MCG PO; +LINACLOTIDE 72 MCG; +LINZESS 72 MCG
[2020-03-26 18:18] VITALS: BP 164/76
[2020-03-26 19:04] VITALS: BP 151/79
[2020-03-26 19:13] LABS: HEMATOCRIT 41.7 % (37.0-47.0); MEAN CELL VOLUME 86.2 fl (81.0-99.0); MEAN CORPUSCULAR HGB 28.5 pg (27.0-31.0); MEAN CORPUSCULAR HGB CONC 33.1 g/dl (33.0-37.0); MEAN PLATELET VOLUME 8.8 fl (9.6-12.3); PLATELET COUNT AUTOMATED 198 10*3/uL (130-400); RED BLOOD COUNT 4.84 10*6/uL (4.10-5.10); RED CELL DISTRI WIDTH 14.6 % (0-14.5)
[2020-03-26 19:27] LABS: ACT PARTIAL THROMBO TIME 29.2 SECONDS (20.0-32.1); INTERNATIONAL NORM RATIO 1.1 (2.0-3.5)
[2020-03-26 19:29] LABS: ALBUMIN 3.6 gm/dl (3.1-4.5); CREATININE 1.41 mg/dL (0.55-1.02); POTASSIUM 4.4 mmol/L (3.5-5.1); TOTAL PROTEIN 7.3 gm/dL (6.4-8.2)
[2020-03-26 19:34] LABS: BURR CELLS FEW; PLATELET SUFFICIENCY NORMAL (NORMAL); TOTAL CELLS COUNTED 100 #CELLS; TROPONIN I 0.62 ng/ml (<0.045)
--- NOTE | 2020-03-26 19:37 | NUR ---
PT UP TO USE BEDSIDE COMMODE. PT STATES "I JUST DON'T FEEL WELL AT ALL." PT VOIDED 150CC OF URINE. PT BACK TO BED WITH SIDERAILS UP X2 AND CALL LIGHT WITHIN REACH
[2020-03-26 20:03] LABS: BACTERIA TRACE; BILIRUBIN NEGATIVE; BLOOD NEGATIVE (NEGATIVE); CLARITY CLEAR (CLEAR); COLOR YELLOW (YELLOW); GLUCOSE NEGATIVE; KETONE 1+; LEUKO ESTERASE NEGATIVE (NEGATIVE); NITRITE NEGATIVE (NEGATIVE); RBC 0-2 rbc/hpf (0-2); SPECIFIC GRAVITY 1.015 (1.001-1.030); WBC 0-2 wbc/hpf (0-5)
[2020-03-26 20:17] VITALS: BP 160/82
--- NOTE | 2020-03-26 20:43 | NUR ---
PT RESTING IN BED WITH EYES CLOSED. NO ACUTE DISTRESS AT THIS TIME. RESPS EASY AND NON LABORED.
[2020-03-26 21:55] VITALS: BP 158/80
--- NOTE | 2020-03-26 21:55 | NUR ---
A 80, admitted to , under the services of NIMESH Anderson DO with a diagnosis of HYPONATREMIA, NSTEMI, GENERALIZED WEAKNESS. Chief complaint is MULTIPLE COMPLAINTS. Patient arrived via bed from ER. Monitor applied. Initial assessment completed. Vital signs taken and recorded. NIMESH ANDERSON DO notified of admission to the unit. Orders received. See assessment for past medical history, medications and allergies. Patient and/or family oriented to unit. [address] visitation policy reviewed. Clothing/patient valuable form completed. NO WOUNDS ON ADMISSION. SKIN WDI. PEREZ ROBERTS
--- NOTE | 2020-03-26 22:00 | NUR ---
PT RESTING IN BED WITH DAUGHTER AT BEDSIDE. IN NO ACUTE DISTRESS. SIDERAILS UP X2. CALL LIGHT WITHIN REACH
--- NOTE | 2020-03-26 23:18 | NUR ---
NEW PATIENT CONSULT CALLED INTO DR WEST. STATES THAT DR LANDRY WILL SEE THE PATIENT IN THE MORNING. NO NEW ORDERS.
--- NOTE | 2020-03-26 23:52 | NUR ---
PT UNSURE OF HOME MEDICATIONS. STATES THAT WE CAN CALL DAUGHTER ANTONIETA AT [phone]. WILL RELAY TO AM NURSE. NOT SURE IF SHE WILL BE UP AT THIS TIME.
[2020-03-27] VITALS: BP 168/66
--- NOTE | 2020-03-27 00:03 | NUR ---
DR LERMA NOTIFIED OF PATIENTS DIFFICULTY SWALLOWING.
--- NOTE | 2020-03-27 00:15 | NUR ---
DR LERMA STATES ITS OKAY FOR PATIENT NOT TO DRINK THE ORAL CONTRAST. PT WILL BE UNABLE TO DRINK IT DUE TO DIFFICULTY SWALLOWING AND DRY HEAVES,
--- NOTE | 2020-03-27 04:24 | NUR ---
ZOFRAN ADMINISTERED FOR PT C/O NAUSEA WITH DRY HEAVES.
[2020-03-27 05:55] LABS: HEMATOCRIT 36.5 % (37.0-47.0); MEAN CELL VOLUME 84.9 fl (81.0-99.0); MEAN CORPUSCULAR HGB 28.6 pg (27.0-31.0); MEAN CORPUSCULAR HGB CONC 33.7 g/dl (33.0-37.0); MEAN PLATELET VOLUME 9.2 fl (9.6-12.3); PLATELET COUNT AUTOMATED 175 10*3/uL (130-400); RED CELL DISTRI WIDTH 14.6 % (0-14.5); WHITE BLOOD COUNT 7.9 10*3/uL (4.8-10.8)
[2020-03-27 06:22] LABS: ALBUMIN 3.2 gm/dl (3.1-4.5); CREATININE 1.29 mg/dL (0.55-1.02); POTASSIUM 4.1 mmol/L (3.5-5.1); TOTAL PROTEIN 6.6 gm/dL (6.4-8.2)
[2020-03-27 06:28] LABS: FREE T4 1.79 ng/dl (0.76-1.46); THYROID STIM HORMONE (HS) 1.36 uIU/ml (0.358-4.75)
--- NOTE | 2020-03-27 06:29 | NUR ---
APTT 97.9, HEPARING ON HOLD UNTIL 729, DECREASED TO 9 U/KG/HR PER POLICY.
[2020-03-27 06:45] LABS: ACANTHOCYTES FEW; BURR CELLS MODERATE; PLATELET SUFFICIENCY NORMAL (NORMAL); TOTAL CELLS COUNTED 100 #CELLS
--- NOTE | 2020-03-27 07:46 | NUR ---
HEPARIN DRIP RESTARTED AT THIS TIME AT 9U/KG.HR PER POLICY AT 5.3ML/HR.
[2020-03-27 07:53] LABS: VITAMIN D, 25-HYDROXY 51.4 ng/mL (30-100)
[2020-03-27 08:00] VITALS: BP 146/74
--- NOTE | 2020-03-27 08:03 | NUR ---
DAUGHTER CALLED, UPDATED ON STATUS. SHE INFORMED ME THAT THE PT FOLLOWS WITH AND FOR CARDIO REASONS. REQUESTED TO HAVE THEM CARE FOR THE PT INSTEAD OF . REQUESTED CHANGE FROM DR.K MILLER WITH THE PRIMARY TEAM. NEW ORDERS REC'D TO HAVE DR.C MILLER CONSULTED AND CANCEL THE CONSULT FOR [facility].
--- NOTE | 2020-03-27 08:08 | NUR ---
NOTIFIED OF CONSULT. SAID HE WOULD SEE THE PT TODAY.
[2020-03-27] MEDS ORDERED: HYDROXYCHLOROQ200 M1 PO (10:29)
[2020-03-27] MEDS ORDERED: VITAMIN D350 MC2 PO (10:30)
[2020-03-27] MEDS ORDERED: HYDRALAZINE HYD50 MG PO (10:31)
[2020-03-27 12:00] VITALS: BP 138/60
--- NOTE | 2020-03-27 12:00 | NUR ---
LAB CALLED WITH CRITICAL APTT OF 71.3. ON HEPARIN DRIP, NO CHANGE PER POLICY NEEDED. NOTIFIED.
--- NOTE | 2020-03-27 12:13 | NUR ---
MERCHANDISER-S in to talk to patient who was sleeping soundly. Phoned pt's daughter Samra English. Patient states lives at home with daughter staying with her. There are 0 steps in the home. Physician: Dr Rodriguez Pharmacy: [facility] Home health services: [facility] Patient's level of ADLs: MODERATE ASSIST Patient has working utilities: yes DME: walker, cane, high rise commode seat. Samra is purchasing showerchair for pt Follow-up physician's appointment after d/c: will need scheduled Does patient want to access PORTAL?: no Discharge plan Pt resides in her own home with her daughter Samra English staying with her since pt fell 02/17/20. Pt has [facility] for VNA/PT/OT and will resume those services. Pt does have a two story home but is only using the first floor. Anticipate no additional discharge needs beyond resuming home health services. VIRI ALCANTARA
--- NOTE | 2020-03-27 14:40 | NUR ---
CONTINUES TO REST WITH EASE. SLEEPING, EASILY AROUSED. CALL LIGHT IN REACH. IVF AND HEPARIN INFUSING PER ORDERS/POLICY. BED ALARM ON. NO VOICED COMPLAINTS AT THIS TIME.
[2020-03-27 16:00] VITALS: BP 150/66
[2020-03-27 20:00] VITALS: BP 139/77
--- NOTE | 2020-03-27 21:07 | NUR ---
DR MILLER ON FLOOR. HE TOLD ME THAT HE CHANGED PATIENT'S METOPROLOL TO 50 MG BID. I NOTIFIED HIM THAT I ALREADY GAVE THE PATIENT HER 25MG DOSE EARLIER. HE STATED TO GO AHEAD AND GIVE HER 25MG MORE OF METOPROLOL TO EQUAL 50MG. WILL ADMINISTER MEDICATION PER DR ARMSTRONG.
--- NOTE | 2020-03-27 23:01 | NUR ---
24 HR chart check completed.
[2020-03-28] VITALS: BP 127/56
[2020-03-28 01:55] VITALS: BP 158/72
--- NOTE | 2020-03-28 01:56 | NUR ---
WENT IN TO CHECK ON PATIENT. SHE WAS SHIVERING AND STATED SHE WAS COLD. I GOT HER ANOTHER BLANKET AND CHECKED HER TEMP AND IT READ 98.1 F ORALLY. ALL VSS. NO OTHER COMPLAINTS. HELPED PATIENT ONTO BEDPAN. SHE VOIDED 100 CC. HELPED PATIENT GET COVERED BACK UP. I TOLD PATIENT I WOULD CHECK IN ON HER IN ABOUT 15 MINUTES TO SEE IF SHE WAS WARMED UP. WILL REASSESS PATIENT SOON.
--- NOTE | 2020-03-28 02:16 | NUR ---
PATIENT'S TEMP RECTALLY IS 101.[address] LERMA. SHE STATED SHE WAS GOING TO PUT ORDERS IN.
--- NOTE | 2020-03-28 02:23 | NUR ---
TYLENOL GIVEN FOR TEMPERATE OF 101.7 RECTALLY. WILL ASSESS EFFECTIVENESS.
[2020-03-28 02:54] LABS: HEMATOCRIT 37.7 % (37.0-47.0); MEAN CELL VOLUME 85.1 fl (81.0-99.0); MEAN CORPUSCULAR HGB 28.2 pg (27.0-31.0); MEAN CORPUSCULAR HGB CONC 33.2 g/dl (33.0-37.0); MEAN PLATELET VOLUME 9.2 fl (9.6-12.3); PLATELET COUNT AUTOMATED 182 10*3/uL (130-400); RED BLOOD COUNT 4.43 10*6/uL (4.10-5.10); RED CELL DISTRI WIDTH 14.5 % (0-14.5); WHITE BLOOD COUNT 6.8 10*3/uL (4.8-10.8)
[2020-03-28 03:06] LABS: ALBUMIN 3.3 gm/dl (3.1-4.5); CREATININE 1.42 mg/dL (0.55-1.02)
--- NOTE | 2020-03-28 03:20 | NUR ---
PATIENT'S TEMP 100.3 RECTALLY.
[2020-03-28 03:22] LABS: PLATELET SUFFICIENCY NORMAL (NORMAL); TOTAL CELLS COUNTED 100 #CELLS
[2020-03-28 06:08] LABS: BASO % 0.3 % (0.0-1.0); EOS % 0.2 % (1.0-4.0); HEMATOCRIT 33.6 % (37.0-47.0); LYMPH # 0.3 10*3/uL (1.3-4.4); LYMPH % 5.1 % (27.0-41.0); MEAN CELL VOLUME 84.4 fl (81.0-99.0); MEAN CORPUSCULAR HGB 28.9 pg (27.0-31.0); MEAN CORPUSCULAR HGB CONC 34.2 g/dl (33.0-37.0); MEAN PLATELET VOLUME 9.5 fl (9.6-12.3); MONO # 0.3 10*3/uL (0.1-1.0); MONO % 4.6 % (3.0-9.0); NEUT # 5.6 10*3/uL (2.3-7.9); NEUT % 89.3 % (47.0-73.0); PLATELET COUNT AUTOMATED 158 10*3/uL (130-400); RED BLOOD COUNT 3.98 10*6/uL (4.10-5.10); RED CELL DISTRI WIDTH 14.5 % (0-14.5); WHITE BLOOD COUNT 6.3 10*3/uL (4.8-10.8)
[2020-03-28 06:39] LABS: ALBUMIN 2.9 gm/dl (3.1-4.5); POTASSIUM 3.9 mmol/L (3.5-5.1)
[2020-03-28 06:41] LABS: CREATININE 1.42 mg/dL (0.55-1.02); TOTAL PROTEIN 6.1 gm/dL (6.4-8.2)
--- NOTE | 2020-03-28 06:52 | NUR ---
RECIEVED CRITICAL APTT OF 64.2. WILL ADJUST HEPARIN DRIP ACCORDING TO PROTOCOL. DR LERMA NOTIFIED.
--- NOTE | 2020-03-28 06:55 | NUR ---
NO CHANGE IN HEPARIN DRIP PER POLICY. APTT 64.2
--- NOTE | 2020-03-28 06:55 | NUR ---
NOTIFIED PATIENT THAT WE NEED TO GET A URINE ON HER. PATIENT DOES NOT HAVE TO VOID AT THIS TIME BUT SHE VERBALIZED UNDERSTANDING.
[2020-03-28 08:00] VITALS: BP 138/70
--- NOTE | 2020-03-28 11:29 | NUR ---
PT TRANSFERED TO [facility]. PLACED IN ISOLATION. NOVEL CORONAVIRUS SWAB SENT PER ORDER.
[2020-03-28 12:00] VITALS: BP 106/40
--- NOTE | 2020-03-28 12:31 | NUR ---
PT RESTING. NO ACUTE DISTRESS NOTED.
[2020-03-28 13:06] LABS: HEP B CORE AB, IGM Negative (Negative); HEPATITIS B SURFACE AG Negative (Negative); HEPATITIS C VIRUS ANTIBODY <0.1 s/co (0.0-0.9)
--- NOTE | 2020-03-28 14:13 | NUR ---
SPOKW WITH PT AND PT'S DAUGHTER R/T GETTING RECORDS FROM [facility] REGARDING RECENT HEART CATH AND ECHO.
--- NOTE | 2020-03-28 15:51 | NUR ---
24 HR chart check completed.
[2020-03-28 16:00] VITALS: BP 145/87
--- NOTE | 2020-03-28 16:00 | NUR ---
RESTING IN BED WITH NO ACUTE DISTRESS NOTED. RESPIRATIONS EASY. LUNGS DIMINISHED. PULSE OX 98% RA. CLAIMS NON-PROD COUGH. CALL LIGHT WITHIN REACH. NO VOICED COMPLAINTS
[2020-03-28 17:04] LABS: BILIRUBIN NEGATIVE; BLOOD NEGATIVE (NEGATIVE); CLARITY CLEAR (CLEAR); COLOR YELLOW (YELLOW); GLUCOSE NEGATIVE; KETONE NEGATIVE; LEUKO ESTERASE NEGATIVE (NEGATIVE); NITRITE NEGATIVE (NEGATIVE); PH 5.5 (4.5-8.0); SPECIFIC GRAVITY 1.015 (1.001-1.030)
[2020-03-28 17:10] LABS: BACTERIA 2+; RBC 0-2 rbc/hpf (0-2)
--- NOTE | 2020-03-28 18:06 | NUR ---
REQUESTED AND RECEIVED TYLENOL PER PRN ORDER FOR COMPLAINTS OF HEADACHE RATING A 5 AND "CHILLS" PER PT. TEMP 98.3, DECLINES RECTAL TEMP. WILL MONITOR
--- NOTE | 2020-03-28 18:55 | NUR ---
STATES EARLIER TYLENOL "HELPING". CALL LIGHT WITHIN REACH. NO FURTHER VOICED COMPLAINTS
[2020-03-28 20:00] VITALS: BP 142/62
--- NOTE | 2020-03-28 20:00 | NUR ---
PATIENT RESTING IN BED. VOICES NO CONCERNS. ASSESSMENT COMPLETE. RESPS EASY AND REGULAR ON RA. DENIES ANY SOB. VSS. CALL LIGHT IN REACH.
--- NOTE | 2020-03-28 22:53 | NUR ---
24 HR chart check completed.
[2020-03-29] VITALS: BP 113/49
--- NOTE | 2020-03-29 05:45 | NUR ---
PER OK TO CANCEL APPT D/T PATIENT NO LONGER BEING ON HEPARIN DRIP.
[2020-03-29 07:38] LABS: BASO % 0.2 % (0.0-1.0); HEMATOCRIT 36.3 % (37.0-47.0); LYMPH # 0.4 10*3/uL (1.3-4.4); LYMPH % 8.1 % (27.0-41.0); MEAN CELL VOLUME 85.6 fl (81.0-99.0); MEAN CORPUSCULAR HGB CONC 33.9 g/dl (33.0-37.0); MEAN PLATELET VOLUME 9.6 fl (9.6-12.3); MONO # 0.4 10*3/uL (0.1-1.0); MONO % 8.3 % (3.0-9.0); NEUT # 4.2 10*3/uL (2.3-7.9); NEUT % 82.8 % (47.0-73.0); PLATELET COUNT AUTOMATED 155 10*3/uL (130-400); RED BLOOD COUNT 4.24 10*6/uL (4.10-5.10); RED CELL DISTRI WIDTH 14.6 % (0-14.5); WHITE BLOOD COUNT 5.1 10*3/uL (4.8-10.8)
--- NOTE | 2020-03-29 07:41 | NUR ---
Occupational therapy order and nursing screen received. Will follow up with the patient for completion of an OT evaluation. Thank you. Marietta Reddy, OTR/L
--- NOTE | 2020-03-29 07:55 | NUR ---
PHYSICAL THERAPY Screen and PT eval received will follow. Thank you. Antonino Lewis SPT Nidia cK PT
[2020-03-29 08:02] LABS: CREATININE 1.66 mg/dL (0.55-1.02); POTASSIUM 3.7 mmol/L (3.5-5.1); TOTAL PROTEIN 6.6 gm/dL (6.4-8.2)
--- NOTE | 2020-03-29 08:54 | NUR ---
SPEECH PATHOLOGY Orders for swalowing evaluation received and chart review completed. Patient is currently NPO as she is scheduled for testing. Will attempt assessment at a later time. Thank you for this referral. TENZIN SCOTT MSCCC-PIT RECORDER
[2020-03-29 09:19] VITALS: BP 149/62
[2020-03-29 11:07] VITALS: BP 166/68
--- NOTE | 2020-03-29 11:11 | NUR ---
BP 168/66, NOTIFIED ROUTINE CARDIAC MEDS WERE JUST GIVEN. WILL MONITOR FOR EFFECTIVENESS.
--- NOTE | 2020-03-29 11:27 | NUR ---
ECHO BEING DONE AT THIS TIME.
--- NOTE | 2020-03-29 14:38 | NUR ---
SPEECH PATHOLOGY Clinician consulted with patient's nurse this pm who reported that patient remains NPO as medical testing has not yet been completed. Due to this, evaluation of swallowing is unable to be completed at this time. Will attempt again tomorrow. Thank you for this referral. TENZIN SCOTT MSCCC-GERIATRIC PHYSICIAN
--- NOTE | 2020-03-29 15:41 | NUR ---
PORTABLE ULTRASOUND OF ABD BEING DONE NOW.
[2020-03-29 16:00] VITALS: BP 134/81
[2020-03-29 20:00] VITALS: BP 146/73
--- NOTE | 2020-03-29 20:00 | NUR ---
PATIENT RESTING IN BED. VOICES NO CONCERNS AT THIS TIME. VSS. POX 100% ON RA. RESPS EASY AND REGULAR. DENIES ANY SOB OR PAIN. ASSESSMENT COMPLETE. ASSISTED PATIENT WHILE SHE BRUSHED HER TEETH AND WASHED OFF BEFORE BED. REPOSITIONED IN BED FOR COMFORT. BED ALARM ON. CALL LIGHT IN REACH.
[2020-03-30] VITALS: BP 155/66
--- NOTE | 2020-03-30 02:13 | NUR ---
24 HR chart check completed.
--- NOTE | 2020-03-30 02:51 | NUR ---
PATIENT MEDICATED WITH PRN TYLENOL AT THIS TIME PER PATIENT REQUEST FOR CO A HEADACHE. WILL ASSESS EFFECTIVENESS. BED ALARM ON. CALL LIGHT IN REACH.
--- NOTE | 2020-03-30 03:51 | NUR ---
PATIENT SLEEPING. TYLENOL APPEARS EFFECTIVE.
[2020-03-30 06:19] LABS: BASO % 0.3 % (0.0-1.0); EOS % 0.2 % (1.0-4.0); HEMATOCRIT 34.7 % (37.0-47.0); LYMPH # 0.5 10*3/uL (1.3-4.4); LYMPH % 7.7 % (27.0-41.0); MEAN CORPUSCULAR HGB 29.1 pg (27.0-31.0); MEAN CORPUSCULAR HGB CONC 34.6 g/dl (33.0-37.0); MEAN PLATELET VOLUME 9.6 fl (9.6-12.3); MONO # 0.5 10*3/uL (0.1-1.0); MONO % 7.9 % (3.0-9.0); NEUT # 5.2 10*3/uL (2.3-7.9); NEUT % 83.1 % (47.0-73.0); PLATELET COUNT AUTOMATED 141 10*3/uL (130-400); RED BLOOD COUNT 4.13 10*6/uL (4.10-5.10); RED CELL DISTRI WIDTH 14.7 % (0-14.5); WHITE BLOOD COUNT 6.2 10*3/uL (4.8-10.8)
[2020-03-30 06:38] LABS: ALBUMIN 2.9 gm/dl (3.1-4.5); CREATININE 1.45 mg/dL (0.55-1.02); POTASSIUM 3.6 mmol/L (3.5-5.1); TOTAL PROTEIN 6.2 gm/dL (6.4-8.2)
[2020-03-30 08:00] VITALS: BP 135/69
--- NOTE | 2020-03-30 09:00 | NUR ---
case management talked with patient's daughter regarding a discharge plan, daughter stated patient lives at home with her, she states she is currently living at home with her and has [employer] [facility], discussed a short term intermediate for rehab with daughter and she declined, she stated she would like patient to return home with her and continue her current home health company, case management will notify [facility] when patient is discharged, daughter denies any other home needs
[2020-03-30 12:00] VITALS: BP 126/85
[2020-03-30 16:00] VITALS: BP 139/55
--- NOTE | 2020-03-30 16:02 | NUR ---
SPEECH PATHOLOGY Clinical swallowing evaluation completed due to difficulty swallowing. Patient is currently in isolation pending results of COVID testing. Patient has been experiencing elevated temps. Medical hx includes hyponatremia, NSTEMI, TIA, GERD, HTN, kidney disese. She currently receives a regular diet and thin liquid. Patient was seen this pm, alert and cooperative with generalized weakness. She endorsed difficulty swallowing and stated that she has to eat slowly and take small bites/sips and rinse foods with liquids. She was assessed with puree, coarse solid and thin liquid. Patient displayed no overt difficulty with any consistency but did implement precautions as mentioned above. Recommend she remain on present diet with continued use of safe swallow precautions and order soft, moist foods. No follow up therapy is warranted as patient tolerates diet and independently uses safety precautions. Patient does not require MBS at this time. Results and jennifer. were shared with patient and her nurse and they verbalized understanding. Refer to report in [employer] for further information. Thank you for this referral. TENZIN SCOTT MSCCC-AIRCRAFT REFUELER
[2020-03-30] MEDS ORDERED: METOPROLOL TART50 M1 PO (16:26)
--- NOTE | 2020-03-30 19:00 | NUR ---
Discharge instructions reviewed with patient/family. Patient receptive and verbalizes understanding. Follow-up care arranged. Written instructions given to patient/family. JESSI JARRELL
--- NOTE | 2020-03-30 20:16 | NUR ---
AT THIS TIME PATIENTS DAUGHTER CALLED TO DISCUSS DISCHARGE PAPERWORK. THE PATIENTS DAUGHTER WAS INQUIRING ABOUT WHY HER METOPROLOL WAS INCREASED AND WHY HER ALDACTONE WAS NOT EVEN LISTED A MEDICATION TO TAKE. LIST PROVIDED BY PATIENTS DAUGHTER INCLUDED ALDACTONE, BUT WAS NOT INCLUDED ON THE MED REC. SPOKE WITH THE PATIENT ABOUT THE INCREASE IN METOPROLOL AND IN A DOCTORS NOTE IT WAS NOTED THAT SHE WAS TACHYCARDIC AND THAT IS WHY THE MEDICATION WAS INCREASED. SPOKE WITH DR. BRADY ABOUT THE ALDACTONE PATIENTS DAUGHTER WANTS TO KNOW IF SHE SHOULD GIVE IT OR NOT. DR. BRADY LOOKED AT THIS TIME AT THE PATIENTS CHART AND NOTED THAT HER BLOOD PRESSURE MEDICATION WAS STABLE WITHOUT THE MEDICATION AND RECOMMENED THIS NURSE TELL THE DAUGHTER TO WAIT UNTIL SHE SEES HER PCP TO DISCUSS WHETHER SHE SHOULD TAKE IT OR NOT. THIS WAS RELAYED TO THE DAUGHTER AND THE DAUGHTER STATED THAT SHE WOULD JUST CALL THE PCP IN THE MORNING.
== END 2020-03-30 19:00 | disposition home health service (06) | DRG 280 ==
LOC: ED 18:11 → EDHOLD 21:06 → 4E 21:06
PROVIDERS: Emergency Medicine; Hospitalist; Internal Medicine; Student in an Organized Health Care Education/Training Program; ADMIT Student in an Organized Health Care Education/Training Program; ATTEND Student in an Organized Health Care Education/Training Program
DX: I21.4 Non-ST elevation (NSTEMI) myocardial infarction (principal); N17.0 Acute kidney failure with tubular necrosis; G93.41 Metabolic encephalopathy; E87.1 Hypo-osmolality and hyponatremia; N18.3 Chronic kidney disease, stage 3 (moderate); M79.7 Fibromyalgia; I71.4 Abdominal aortic aneurysm, without rupture; K21.9 Gastro-esophageal reflux disease without esophagitis; M06.9 Rheumatoid arthritis, unspecified; M47.812 Spondylosis without myelopathy or radiculopathy, cervical region; E89.0 Postprocedural hypothyroidism; E78.5 Hyperlipidemia, unspecified; R73.9 Hyperglycemia, unspecified; I12.9 Hypertensive chronic kidney disease with stage 1 through stage 4 chronic kidney disease, or unspecified chronic kidney disease; E87.8 Other disorders of electrolyte and fluid balance, not elsewhere classified; I24.8 Other forms of acute ischemic heart disease; I25.10 Atherosclerotic heart disease of native coronary artery without angina pectoris; Z20.828 Contact with and (suspected) exposure to other viral communicable diseases; R74.0 Nonspecific elevation of levels of transaminase and lactic acid dehydrogenase [LDH]; Z90.49 Acquired absence of other specified parts of digestive tract; Z82.49 Family history of ischemic heart disease and other diseases of the circulatory system; Z87.891 Personal history of nicotine dependence; Z79.82 Long term (current) use of aspirin; Z79.899 Other long term (current) drug therapy

== ENCOUNTER 2020-04-06 13:27 | Inpatient (IN) | payer MEDICARE ==
[2020-04-06] VITALS (7 sets, daily range): BP systolic 105–134; BP diastolic 52–79
[~2020-04-06] VITALS: Ht 160 cm; Wt 56.2 kg
[~2020-04-06 13:27] MED LIST changes: +HYDRALAZINE HYD50 MG PO; +METOPROLOL TART50 M1 PO; +VITAMIN D350 MC2 PO
[2020-04-06 14:29] LABS: BASO % 0.3 % (0.0-1.0); EOS # 0.5 10*3/uL (0.0-0.4); EOS % 3.5 % (1.0-4.0); HEMATOCRIT 39.6 % (37.0-47.0); LYMPH # 0.9 10*3/uL (1.3-4.4); LYMPH % 6.3 % (27.0-41.0); MEAN CELL VOLUME 84.8 fl (81.0-99.0); MEAN CORPUSCULAR HGB 28.1 pg (27.0-31.0); MEAN CORPUSCULAR HGB CONC 33.1 g/dl (33.0-37.0); MEAN PLATELET VOLUME 9.7 fl (9.6-12.3); MONO # 0.7 10*3/uL (0.1-1.0); NEUT # 12.4 10*3/uL (2.3-7.9); NEUT % 84.4 % (47.0-73.0); PLATELET COUNT AUTOMATED 365 10*3/uL (130-400); RED BLOOD COUNT 4.67 10*6/uL (4.10-5.10); RED CELL DISTRI WIDTH 15.9 % (0-14.5); WHITE BLOOD COUNT 14.7 10*3/uL (4.8-10.8)
--- NOTE | 2020-04-06 14:45 | NUR ---
MOMENTARILY DURING ADMINISTRATION OF 12MG DOSE ADENOSIN PULSE DROPPED TO 78 AND WAS PLAINLY AFIB. RATE NOW IMMEDIATLEY RETURNS TO 146 AND TX FOR AFIB WILL COMMENCE.
[2020-04-06 14:51] LABS: ALBUMIN 2.8 gm/dl (3.1-4.5); CREATININE 1.19 mg/dL (0.55-1.02); POTASSIUM 4.2 mmol/L (3.5-5.1); TOTAL PROTEIN 6.6 gm/dL (6.4-8.2)
[2020-04-06 14:55] LABS: TROPONIN I 0.157 ng/ml (<0.045)
--- NOTE | 2020-04-06 16:00 | NUR ---
RATE NOW STABLE AT 86. MADE AWARE.
[2020-04-06] MEDS ORDERED: ALDACTONE25 M1 PO (16:50)
[2020-04-06] MEDS ORDERED: AMLODIPINE BESYL5 MG PO (16:50)
[2020-04-06] MEDS ORDERED: AMITRIPTYLINE25 MG PO (16:50)
[2020-04-06] MEDS ORDERED: OMEPRAZOLE40 MG PO (16:51)
--- NOTE | 2020-04-06 16:58 | NUR ---
DR MILLER AWARE OF CONSULT. NO NEW ORDERS AT THIS TIME.
--- NOTE | 2020-04-06 16:58 | NUR ---
MED RED VERIFIED WITH [facility]. DR MONZON AWARE
--- NOTE | 2020-04-06 19:09 | NUR ---
NURSE TO NURSE REPORT GIVEN TO THIS RN AT THIS TIME.
--- NOTE | 2020-04-06 19:50 | NUR ---
A 80, admitted to , under the services of NIMESH Anderson DO with a diagnosis of AFIB W/RVR. Chief complaint is SOB/CP. Patient arrived via ambulance from ER. Monitor applied. Initial assessment completed. Vital signs taken and recorded. NIMESH ANDERSON DO notified of admission to the unit. Orders received. See assessment for past medical history, medications and allergies. Patient and/or family oriented to unit. [facility] visitation policy reviewed. Clothing/patient valuable form completed. KWAN BARROS
[2020-04-07] VITALS: BP 122/74; BP 123/51
--- NOTE | 2020-04-07 01:11 | NUR ---
DR. MILLER NOTIFIED OF PT'S HR SUSTAINING IN 80'S AND DR. BRADY WANTED HIM NOTIFIED. T.O. RCVD TO D/C CARDIZEM GTT, ELIQUIS 2.5MG PO BID, AND SOTALOL 80MG PO EVERY 8HRS TO START NOW.
--- NOTE | 2020-04-07 01:22 | NUR ---
CARDIZEM GTT D/C'D AT THIS TIME. PT RESTING QUIETLY IN BED. NO S/S OF DISTRESS NOTED.
[2020-04-07 04:00] VITALS: BP 124/70
[2020-04-07 06:05] LABS: BASO # 0.1 10*3/uL (0.0-0.1); BASO % 0.5 % (0.0-1.0); EOS # 0.1 10*3/uL (0.0-0.4); EOS % 0.5 % (1.0-4.0); HEMATOCRIT 35.7 % (37.0-47.0); LYMPH # 0.9 10*3/uL (1.3-4.4); LYMPH % 6.5 % (27.0-41.0); MEAN CELL VOLUME 86.9 fl (81.0-99.0); MEAN CORPUSCULAR HGB 28.7 pg (27.0-31.0); MEAN CORPUSCULAR HGB CONC 33.1 g/dl (33.0-37.0); MEAN PLATELET VOLUME 10.2 fl (9.6-12.3); MONO # 0.8 10*3/uL (0.1-1.0); MONO % 6.1 % (3.0-9.0); NEUT # 11.2 10*3/uL (2.3-7.9); NEUT % 85.9 % (47.0-73.0); PLATELET COUNT AUTOMATED 356 10*3/uL (130-400); RED BLOOD COUNT 4.11 10*6/uL (4.10-5.10); RED CELL DISTRI WIDTH 16.1 % (0-14.5)
[2020-04-07 06:08] LABS: ALBUMIN 2.6 gm/dl (3.1-4.5); CREATININE 1.21 mg/dL (0.55-1.02); POTASSIUM 4.2 mmol/L (3.5-5.1); TOTAL PROTEIN 5.9 gm/dL (6.4-8.2)
[2020-04-07 06:51] LABS: INTERNATIONAL NORM RATIO 1.1 (2.0-3.5)
[2020-04-07 08:00] VITALS: BP 136/68
--- NOTE | 2020-04-07 09:00 | NUR ---
Family Practitioner in to talk to patient. Patient states lives at home with her daughter. There are 0 steps in the home. Physician: Dr. Jeff Rodriguez Pharmacy: [facility] Home health services: currently has [facility] and would like to resume those services upon discharge Patient's level of ADLs: MINIMAL ASSIST Patient has working utilities: yes DME: cane, walker, high rise toilet seat. Daughter did not get her a shower chair yet as their shower needs work. She states her daughter has been bathing her. Follow-up physician's appointment after d/c: will be made by the hospitalist nurse director upon discharge Does patient want to access PORTAL?: no Discharge plan discussed with patient. She lives at home with her daughter. She needs assistance with her ADLs and ambulates with either a cane or a walker. Discussed short term rehab and she declines. Discussed home health care services and she states he currently has [facility] and would like to resume their services upon discharge. When medically stable she will be discharged to home with the resumption od her [facility]. She states her daughter will provide transportation on discharge. JF LEBRON
--- NOTE | 2020-04-07 09:45 | NUR ---
DR MONZON NOTIFIED OF CRITICAL TROPONIN 0.136.
[2020-04-07 12:00] VITALS: BP 117/67
--- NOTE | 2020-04-07 13:30 | NUR ---
DR MONZON NOTIFIED OF JANESSA TO HOME MEDS RECONCILIATION. PT DOES NOT TAKE ELAVIL AT HOME. MEDICATION WAS D/C'D 03/26. MED LIST ON FILE IN CHART.
--- NOTE | 2020-04-07 13:31 | NUR ---
SPOKE TO PT DAUGHTER REGARDING HOME MEDICATIONS. I ATTEMPTED TO TELL HER THAT WE DID RECIEVE A FAX FROM [facility] AND WE HAD UPDATED MED LIST. DAUGHTER WAS UPSET,RUDE AND YELLING ABOUT "NOT BEING ABLE TO SEE HER MOTHER" AND "[facility] MESSED UP HER MEDS THE LAST TIME SHE WAS THERE LAST WEEK". PT WAS AND ADVISED US TO CALL DR PRATHER". WHEN FINALLY ABLE TO SPEAK I ADVISED HER THAT I HAD DONE PRECISELY WHAT SHE ASKED AND HAD RETURNED HER CALL LIKE SHE ASKED, I HOWEVER WOULD NOT CALL DR PRATHER.IT WAS FINE THAT I SPOKE WITH HER. FOR HOSPITAL POLICY I APPOLIGIZED AND TOLD HER SHE COULD SPEAK WITH MY VETERINARY VIROLOGIST. SHE DENIED AT THIS TIME.
--- NOTE | 2020-04-07 14:25 | NUR ---
Nursing screen received and Occupational Therapy referral received. Thank you. Lashonda Mancuso OTR/l
--- NOTE | 2020-04-07 15:50 | NUR ---
RESTING IN BED WITH EYES CLOSED,AROUSES EASILY. ENCOURAGEMENT AND EDUCATION PROVIDED REGARDING NEXT MEAL. PT ONLY AT 2 BITEAS OF LUNCH. VOICES NO OTHER NEEDS AT THIS TIME.BED ALARM INTACT. CALL LIGHT IN REACH.
[2020-04-07 16:00] VITALS: BP 135/61
[2020-04-07] MEDS ORDERED: ELIQUIS5 M1 PO (17:18)
[2020-04-07] MEDS ORDERED: SOTALOL HCL80 MG PO (17:18)
--- NOTE | 2020-04-07 18:03 | NUR ---
PT C/O NAUSEA. ATTEMPTED TO MEDICATE WITH ZOFRAN. PT REFUSED. PT HAD ONLY EATEN 2 BITES OF MASHED POTATOES.PROVIDED PT WITH WARM ALLISON SAVANNAH. PT STATES THAT ITS EFFECTIVE FOR NOW. ADVISED PT THAT IF SHE CONTINUES TO FEEL NAUSEA I HAVE ZOFRAN.
--- NOTE | 2020-04-07 19:40 | NUR ---
PATIENT RESTING IN BED VOICES NO CONCERNS. ASSESSMENT COMPLETE. RESPS EASY AND REGULAR. CALL LIGHT IN REACH.
[2020-04-07 20:00] VITALS: BP 135/68
--- NOTE | 2020-04-07 22:18 | NUR ---
NOTIFIED PATIENTS MONITOR STRIP LOOKED LIKE SHE WAS HAVING SOME PAUSES. PATIENT SYMPTOMATIC. STATES SHE WOULD BE UP TO TAKE A LOOK AT IT IN A LITTLE BIT,
--- NOTE | 2020-04-07 23:51 | NUR ---
24 HR chart check completed.
[2020-04-08] VITALS: BP 126/62
--- NOTE | 2020-04-08 00:49 | NUR ---
CONTACTED REGARDING PATIENTS HR STAYING IN THE 130S. HR CURRENTLY 134. BP 126/62. PER CARDIZEM 5MG IV BOLUS AND THEN START GTT AT 5MG/HR.
[2020-04-08 01:15] VITALS: BP 115/64
--- NOTE | 2020-04-08 01:15 | NUR ---
CARDIZEM DRIP STARTED @ THIS TIME 5 MG BOLUS GIVEN AND THEN STARTED AT 5MG/HR. VERIFIED BY THIS RN AND EDWIN WONG RN. CURRENT BP @ THIS TIME IS 115/64. WILL MONITOR.
[2020-04-08 03:10] VITALS: BP 108/60
--- NOTE | 2020-04-08 03:10 | NUR ---
CARDIZEM DRIP SHUT OFF AT THIS TIME. HR CONVERTED TO NSR, CURRENT HR 77. BP 108/60. WILL MONITOR.
--- NOTE | 2020-04-08 05:30 | NUR ---
TYLENOL GIVEN PER PATIENT REQUEST FOR CO BODY ACHES. WILL ASSESS EFFECTIVENESS.
--- NOTE | 2020-04-08 06:30 | NUR ---
TYLENOL SEEMS TO BE SOMEWHAT EFFECTIVE PER PATIENT.
--- NOTE | 2020-04-08 07:16 | NUR ---
ATTEMPTED TO CALL TO LEFT HIM KNOW WHEN CARDIZEM DRIP WAS TURNED OFF AND THAT PATIENT HAS CONVERTED INTO NSR. AWAITING CALL BACK.
[2020-04-08 08:00] VITALS: BP 110/64
--- NOTE | 2020-04-08 09:00 | NUR ---
CM in to see patient. No new needs or request at this time. When medically stable she will be discharged to home with the resumption of her [facility].
[2020-04-08 12:00] VITALS: BP 120/44
--- NOTE | 2020-04-08 13:06 | NUR ---
Spoke to pharmacist at [facility] for cost of Eliquis 2.5 mg BID. It will be $47 for 60 pills. Hospitalist nurse director notified.
--- NOTE | 2020-04-08 13:31 | NUR ---
Faxed home health resumption and discharge instructions to [facility]
--- NOTE | 2020-04-08 13:34 | NUR ---
Spoke to daughter, Samra, regarding her mother discharging to home today. Explained the doctors started her mother on a new medication, Eliquis 2.5 mg po bid. Explained the cost of the new medication at the patient's pharmacy, [facility], would be $47 for 60 pills. Daughter stated the cost was ok. Asked daughter if she was going to transport the patient home and she agreed. Asked about a time frame and she suggested 1400. Nurse notified.
--- NOTE | 2020-04-08 14:05 | NUR ---
Discharge instructions reviewed with patient/family. Patient receptive and verbalizes understanding. Follow-up care arranged. Written instructions given to patient/family. HARDY SCHMITT
--- NOTE | 2020-04-08 14:44 | NUR ---
OT NOTE Occupational therapy order received and chart reviewed. Attempted to see patient however she has since been discharged. Thank you for the referral. Marietta Reddy OTR/L
== END 2020-04-08 15:57 | disposition home or self-care (01) | DRG 280 ==
LOC: ED 13:27 → EDHOLD 15:35 → 4E 15:35
PROVIDERS: Emergency Medicine; Internal Medicine; ADMIT Student in an Organized Health Care Education/Training Program; ATTEND Student in an Organized Health Care Education/Training Program
DX: I21.4 Non-ST elevation (NSTEMI) myocardial infarction (principal); G93.41 Metabolic encephalopathy; E87.1 Hypo-osmolality and hyponatremia; E44.0 Moderate protein-calorie malnutrition; I48.92 Unspecified atrial flutter; I48.91 Unspecified atrial fibrillation; M06.9 Rheumatoid arthritis, unspecified; E03.9 Hypothyroidism, unspecified; M79.7 Fibromyalgia; K21.9 Gastro-esophageal reflux disease without esophagitis; M85.80 Other specified disorders of bone density and structure, unspecified site; D64.9 Anemia, unspecified; I25.10 Atherosclerotic heart disease of native coronary artery without angina pectoris; I12.9 Hypertensive chronic kidney disease with stage 1 through stage 4 chronic kidney disease, or unspecified chronic kidney disease; W19.XXXA Unspecified fall, initial encounter; N18.3 Chronic kidney disease, stage 3 (moderate); E78.5 Hyperlipidemia, unspecified; Z86.73 Personal history of transient ischemic attack (TIA), and cerebral infarction without residual deficits; Z90.710 Acquired absence of both cervix and uterus; Z82.49 Family history of ischemic heart disease and other diseases of the circulatory system; Z79.82 Long term (current) use of aspirin; Z79.899 Other long term (current) drug therapy; Y93.89 Activity, other specified; Z68.21 Body mass index [BMI] 21.0-21.9, adult; Y92.89 Other specified places as the place of occurrence of the external cause; Y99.8 Other external cause status; Z79.01 Long term (current) use of anticoagulants

== ENCOUNTER 2020-12-16 08:29 | Inpatient (IN) | payer MEDICARE, MEDICAID ==
[~2020-12-16] VITALS: Ht 157.5 cm; Wt 45.9 kg
[~2020-12-16 08:29] MED LIST changes: +ALDACTONE25 M1 PO; +AMITRIPTYLINE25 MG PO; +AMLODIPINE BESYL5 MG PO; +ELIQUIS5 M1 PO; +OMEPRAZOLE40 MG PO; +SOTALOL HCL80 MG PO
[2020-12-16 08:34] VITALS: BP 164/63
[2020-12-16 09:14] LABS: BASO % 0.3 % (0.0-1.0); LYMPH # 1.2 10*3/uL (1.3-4.4); MEAN CELL VOLUME 89.8 fl (81.0-99.0); MEAN CORPUSCULAR HGB 28.8 pg (27.0-31.0); MEAN CORPUSCULAR HGB CONC 32.1 g/dl (33.0-37.0); MEAN PLATELET VOLUME 9.4 fl (9.6-12.3); MONO # 0.6 10*3/uL (0.1-1.0); MONO % 6.5 % (3.0-9.0); NEUT # 7.7 10*3/uL (2.3-7.9); NEUT % 80.1 % (47.0-73.0); PLATELET COUNT AUTOMATED 222 10*3/uL (130-400); RED BLOOD COUNT 4.23 10*6/uL (4.10-5.10); RED CELL DISTRI WIDTH 14.9 % (0-14.5); WHITE BLOOD COUNT 9.6 10*3/uL (4.8-10.8)
[2020-12-16 09:30] LABS: ALBUMIN 3.7 gm/dl (3.1-4.5); CREATININE 1.31 mg/dL (0.55-1.02); POTASSIUM 3.9 mmol/L (3.5-5.1); TOTAL PROTEIN 6.8 gm/dL (6.4-8.2)
[2020-12-16 09:46] VITALS: BP 152/61
[2020-12-16 11:15] VITALS: BP 182/72
[2020-12-16 11:26] LABS: BILIRUBIN Negative (Negative); BLOOD Negative (Negative); CLARITY Clear (Clear); COLOR Yellow (Yellow); GLUCOSE Negative (Negative); KETONE Negative (Negative); LEUKO ESTERASE 1+ (Negative); NITRITE Positive (Negative); PH 6.5 (4.5-8.0); SPECIFIC GRAVITY <= 1.005 (1.001-1.030); UROBILINOGEN 0.2 E.U./dl (0.0-1.0)
[2020-12-16 11:34] LABS: BACTERIA 3+
[2020-12-16 12:00] VITALS: BP 192/78
[2020-12-16] MEDS ORDERED: ZINC50 M4 PO (14:22)
[2020-12-16] MEDS ORDERED: LINZESS145 MC1 PO (14:23)
[2020-12-16] MEDS ORDERED: REGLAN5 MG PO (14:24)
[2020-12-16] MEDS ORDERED: MILK OF MA400 MG/5 M PO (14:25)
[2020-12-16] MEDS ORDERED: PROTONIX TR40 MG PO (14:25)
[2020-12-16] MEDS ORDERED: MIRALAX17 GM PO ×2 (14:26→14:28)
[2020-12-16] MEDS ORDERED: VITAMIN C500 M1 PO (14:27)
[2020-12-16 15:52] VITALS: BP 179/64
[2020-12-16 20:00] VITALS: BP 139/69
[2020-12-17] VITALS: BP 153/64
[2020-12-17 06:02] LABS: CREATININE 1.15 mg/dL (0.55-1.02); POTASSIUM 3.5 mmol/L (3.5-5.1); TOTAL PROTEIN 6.4 gm/dL (6.4-8.2)
[2020-12-17 06:04] LABS: INTERNATIONAL NORM RATIO 1.2 (2.0-3.5)
[2020-12-17 06:08] LABS: THYROID STIM HORMONE (HS) 0.245 uIU/ml (0.358-4.75)
[2020-12-17 06:18] LABS: BASO # 0.1 10*3/uL (0.0-0.1); BASO % 0.3 % (0.0-1.0); HEMATOCRIT 36.2 % (37.0-47.0); LYMPH # 0.9 10*3/uL (1.3-4.4); LYMPH % 5.5 % (27.0-41.0); MEAN CELL VOLUME 88.5 fl (81.0-99.0); MEAN CORPUSCULAR HGB 29.1 pg (27.0-31.0); MEAN CORPUSCULAR HGB CONC 32.9 g/dl (33.0-37.0); MEAN PLATELET VOLUME 9.9 fl (9.6-12.3); MONO # 0.7 10*3/uL (0.1-1.0); MONO % 4.5 % (3.0-9.0); NEUT # 14.2 10*3/uL (2.3-7.9); NEUT % 89.1 % (47.0-73.0); RED BLOOD COUNT 4.09 10*6/uL (4.10-5.10); RED CELL DISTRI WIDTH 15.2 % (0-14.5); WHITE BLOOD COUNT 15.9 10*3/uL (4.8-10.8)
[2020-12-17 06:27] LABS: PLATELET COUNT AUTOMATED 155 10*3/uL (130-400)
[2020-12-17 08:00] VITALS: BP 169/57
[2020-12-17 12:00] VITALS: BP 146/54
[2020-12-17 16:00] VITALS: BP 165/56
[2020-12-17 20:00] VITALS: BP 164/76
[2020-12-18] VITALS: BP 169/62
[2020-12-18 06:02] LABS: CHLORIDE 103 mmol/L (98-107); POTASSIUM 3.7 mmol/L (3.5-5.1); SODIUM 136 mmol/L (136-145)
[2020-12-18 06:05] LABS: BUN 29 mg/dl (7-24); CREATININE 1.04 mg/dL (0.55-1.02)
[2020-12-18 07:01] LABS: BASO % 0.3 % (0.0-1.0); HEMATOCRIT 34.1 % (37.0-47.0); LYMPH % 7.7 % (27.0-41.0); MEAN CELL VOLUME 88.1 fl (81.0-99.0); MEAN CORPUSCULAR HGB 28.9 pg (27.0-31.0); MEAN CORPUSCULAR HGB CONC 32.8 g/dl (33.0-37.0); MEAN PLATELET VOLUME 10.2 fl (9.6-12.3); MONO # 0.9 10*3/uL (0.1-1.0); MONO % 7.4 % (3.0-9.0); NEUT # 10.6 10*3/uL (2.3-7.9); NEUT % 83.8 % (47.0-73.0); PLATELET COUNT AUTOMATED 119 10*3/uL (130-400); RED BLOOD COUNT 3.87 10*6/uL (4.10-5.10); RED CELL DISTRI WIDTH 15.3 % (0-14.5); WHITE BLOOD COUNT 12.6 10*3/uL (4.8-10.8)
[2020-12-18 08:00] VITALS: BP 170/72
[2020-12-18 12:00] VITALS: BP 165/66
[2020-12-18 16:00] VITALS: BP 167/62
[2020-12-18 20:00] VITALS: BP 181/69
[2020-12-19] VITALS: BP 168/73
[2020-12-19 06:08] LABS: BASO % 0.3 % (0.0-1.0); HEMATOCRIT 33.8 % (37.0-47.0); LYMPH # 0.9 10*3/uL (1.3-4.4); LYMPH % 8.4 % (27.0-41.0); MEAN CELL VOLUME 87.3 fl (81.0-99.0); MEAN CORPUSCULAR HGB 28.9 pg (27.0-31.0); MEAN CORPUSCULAR HGB CONC 33.1 g/dl (33.0-37.0); MEAN PLATELET VOLUME 10.8 fl (9.6-12.3); MONO % 9.4 % (3.0-9.0); NEUT # 8.3 10*3/uL (2.3-7.9); NEUT % 81.1 % (47.0-73.0); PLATELET COUNT AUTOMATED 106 10*3/uL (130-400); RED BLOOD COUNT 3.87 10*6/uL (4.10-5.10); RED CELL DISTRI WIDTH 14.8 % (0-14.5); WHITE BLOOD COUNT 10.3 10*3/uL (4.8-10.8)
[2020-12-19 06:22] LABS: BUN 32 mg/dl (7-24); CHLORIDE 103 mmol/L (98-107); CREATININE 0.84 mg/dL (0.55-1.02); POTASSIUM 3.8 mmol/L (3.5-5.1); SODIUM 135 mmol/L (136-145)
[2020-12-19 08:00] VITALS: BP 157/79
[2020-12-19 12:00] VITALS: BP 156/70
[2020-12-19 16:00] VITALS: BP 169/77
[2020-12-19 20:00] VITALS: BP 174/69
[2020-12-20] VITALS (7 sets, daily range): BP systolic 99–173; BP diastolic 46–78
[2020-12-20 05:52] LABS: ALBUMIN 2.7 gm/dl (3.1-4.5); ALKALINE PHOSPHATASE 75 U/L (45-117); BUN 39 mg/dl (7-24); CHLORIDE 103 mmol/L (98-107); CREATININE 0.82 mg/dL (0.55-1.02); SGOT/AST 19 IU/L (3-35); SGPT/ALT 17 U/L (12-78); SODIUM 136 mmol/L (136-145); TOTAL PROTEIN 6.4 gm/dL (6.4-8.2)
[2020-12-20 06:52] LABS: BASO % 0.4 % (0.0-1.0); EOS # 0.1 10*3/uL (0.0-0.4); EOS % 0.8 % (1.0-4.0); HEMATOCRIT 36.1 % (37.0-47.0); LYMPH % 9.8 % (27.0-41.0); MEAN CELL VOLUME 87.2 fl (81.0-99.0); MEAN CORPUSCULAR HGB CONC 33.2 g/dl (33.0-37.0); MEAN PLATELET VOLUME 10.6 fl (9.6-12.3); MONO # 1.2 10*3/uL (0.1-1.0); MONO % 11.8 % (3.0-9.0); NEUT # 7.5 10*3/uL (2.3-7.9); NEUT % 76.4 % (47.0-73.0); RED BLOOD COUNT 4.14 10*6/uL (4.10-5.10); RED CELL DISTRI WIDTH 14.6 % (0-14.5); WHITE BLOOD COUNT 9.8 10*3/uL (4.8-10.8)
[2020-12-20 06:54] LABS: PLATELET COUNT AUTOMATED 150 10*3/uL (130-400)
[2020-12-21] VITALS: BP 135/58
[2020-12-21 06:21] LABS: ALBUMIN 2.4 gm/dl (3.1-4.5); ALKALINE PHOSPHATASE 66 U/L (45-117); BASO % 0.5 % (0.0-1.0); BUN 37 mg/dl (7-24); CHLORIDE 104 mmol/L (98-107); CREATININE 0.84 mg/dL (0.55-1.02); EOS # 0.3 10*3/uL (0.0-0.4); EOS % 3.7 % (1.0-4.0); HEMATOCRIT 33.1 % (37.0-47.0); LYMPH # 1.4 10*3/uL (1.3-4.4); LYMPH % 18.5 % (27.0-41.0); MEAN CELL VOLUME 88.3 fl (81.0-99.0); MEAN CORPUSCULAR HGB 28.8 pg (27.0-31.0); MEAN CORPUSCULAR HGB CONC 32.6 g/dl (33.0-37.0); MEAN PLATELET VOLUME 10.6 fl (9.6-12.3); MONO % 13.8 % (3.0-9.0); NEUT # 4.8 10*3/uL (2.3-7.9); NEUT % 62.8 % (47.0-73.0); PLATELET COUNT AUTOMATED 154 10*3/uL (130-400); POTASSIUM 4.2 mmol/L (3.5-5.1); RED BLOOD COUNT 3.75 10*6/uL (4.10-5.10); RED CELL DISTRI WIDTH 14.6 % (0-14.5); SGOT/AST 41 IU/L (3-35); SGPT/ALT 32 U/L (12-78); SODIUM 138 mmol/L (136-145); TOTAL PROTEIN 5.6 gm/dL (6.4-8.2); WHITE BLOOD COUNT 7.6 10*3/uL (4.8-10.8)
[2020-12-21 08:00] VITALS: BP 112/64
[2020-12-21] MEDS ORDERED: PREMIERPRO RX ME1 GM IV (08:41)
[2020-12-21 12:00] VITALS: BP 106/88
[2020-12-21] MEDS ORDERED: METOCLOPRAMIDE H5 M1 PO (13:44)
== END 2020-12-21 17:35 | DRG 551 ==
LOC: ED 08:29 → 4E 11:04 → EDHOLD 11:04 → 4E 11:20
PROVIDERS: Emergency Medicine; Internal Medicine; Student in an Organized Health Care Education/Training Program; ADMIT Family Medicine; ATTEND Family Medicine
PROC: BD1BYZZ Fluoroscopy of Mouth/Oropharynx using Other Contrast (ICD-10-PCS; 2020-12-17)
PROC: 0D718ZZ Dilation of Upper Esophagus, Via Natural or Artificial Opening Endoscopic (ICD-10-PCS; principal; 2020-12-20)
PROC: 0DB78ZX Excision of Stomach, Pylorus, Via Natural or Artificial Opening Endoscopic, Diagnostic (ICD-10-PCS; 2020-12-20)
DX: S32.10XA Unspecified fracture of sacrum, initial encounter for closed fracture (principal); N17.0 Acute kidney failure with tubular necrosis; S32.591A Other specified fracture of right pubis, initial encounter for closed fracture; N30.00 Acute cystitis without hematuria; Z16.12 Extended spectrum beta lactamase (ESBL) resistance; K22.2 Esophageal obstruction; M06.9 Rheumatoid arthritis, unspecified; M79.7 Fibromyalgia; I48.0 Paroxysmal atrial fibrillation; I12.9 Hypertensive chronic kidney disease with stage 1 through stage 4 chronic kidney disease, or unspecified chronic kidney disease; N18.32 Chronic kidney disease, stage 3b; R26.9 Unspecified abnormalities of gait and mobility; E03.9 Hypothyroidism, unspecified; K21.9 Gastro-esophageal reflux disease without esophagitis; B96.1 Klebsiella pneumoniae [K. pneumoniae] as the cause of diseases classified elsewhere; E78.5 Hyperlipidemia, unspecified; K29.70 Gastritis, unspecified, without bleeding; K44.9 Diaphragmatic hernia without obstruction or gangrene; Z20.822 Contact with and (suspected) exposure to COVID-19; W01.0XXA Fall on same level from slipping, tripping and stumbling without subsequent striking against object, initial encounter; R13.10 Dysphagia, unspecified; M85.80 Other specified disorders of bone density and structure, unspecified site; Y93.89 Activity, other specified; Y92.89 Other specified places as the place of occurrence of the external cause; Y99.8 Other external cause status; Z90.710 Acquired absence of both cervix and uterus; Z87.891 Personal history of nicotine dependence; Z82.49 Family history of ischemic heart disease and other diseases of the circulatory system; I25.2 Old myocardial infarction; Z79.899 Other long term (current) drug therapy; Z79.82 Long term (current) use of aspirin

== ENCOUNTER → 2021-01-05 | Outpatient (CLI) | payer MEDICARE, MEDICAID ==
[~2021-01-05] MED LIST changes: +LINZESS145 MC1 PO; +METOCLOPRAMIDE H5 M1 PO; +MILK OF MA400 MG/5 M PO; +MIRALAX17 GM PO; +PREMIERPRO RX ME1 GM IV; +PROTONIX TR40 MG PO; +REGLAN5 MG PO; +VITAMIN C500 M1 PO; +ZINC50 M4 PO
== END | disposition home or self-care (01) ==
LOC: ORTHO 00:35
PROVIDERS: ATTEND Orthopaedic Surgery
DX: S32.9XXA Fracture of unspecified parts of lumbosacral spine and pelvis, initial encounter for closed fracture (principal); X58.XXXD Exposure to other specified factors, subsequent encounter

== ENCOUNTER → 2021-02-10 | Outpatient (CLI) | payer MEDICARE, MEDICAID ==
[~2021-02-10] MED LIST changes: +GAVILYTE C WI PO; +METOCLOPRAMIDE5 MG PO
== END | disposition home or self-care (01) ==
LOC: CT 11:00
PROVIDERS: ATTEND Urology
DX: I71.4 Abdominal aortic aneurysm, without rupture (principal); K56.41 Fecal impaction; I25.10 Atherosclerotic heart disease of native coronary artery without angina pectoris; R33.9 Retention of urine, unspecified; Z96.0 Presence of urogenital implants; Z90.49 Acquired absence of other specified parts of digestive tract

== ENCOUNTER 2021-02-18 09:16 | Inpatient (IN) | payer MEDICARE, MEDICAID ==
[~2021-02-18] VITALS: Ht 157.4 cm; Wt 47.2 kg
[~2021-02-18 09:16] MED LIST changes: -GAVILYTE C WI PO; -METOCLOPRAMIDE5 MG PO
[2021-02-18 09:17] VITALS: BP 161/57
[2021-02-18 09:58] LABS: BASO % 0.4 % (0.0-1.0); EOS # 0.2 10*3/uL (0.0-0.4); EOS % 2.9 % (1.0-4.0); HEMATOCRIT 34.4 % (37.0-47.0); LYMPH # 1.4 10*3/uL (1.3-4.4); LYMPH % 18.6 % (27.0-41.0); MEAN CELL VOLUME 92.5 fl (81.0-99.0); MEAN CORPUSCULAR HGB 29.8 pg (27.0-31.0); MEAN CORPUSCULAR HGB CONC 32.3 g/dl (33.0-37.0); MEAN PLATELET VOLUME 8.7 fl (9.6-12.3); MONO # 0.7 10*3/uL (0.1-1.0); MONO % 10.2 % (3.0-9.0); NEUT # 4.9 10*3/uL (2.3-7.9); NEUT % 67.6 % (47.0-73.0); PLATELET COUNT AUTOMATED 238 10*3/uL (130-400); RED BLOOD COUNT 3.72 10*6/uL (4.10-5.10); RED CELL DISTRI WIDTH 14.6 % (0-14.5); WHITE BLOOD COUNT 7.3 10*3/uL (4.8-10.8)
[2021-02-18 10:18] LABS: ALBUMIN 3.4 gm/dl (3.1-4.5); ALKALINE PHOSPHATASE 99 U/L (45-117); BUN 22 mg/dl (7-24); CHLORIDE 107 mmol/L (98-107); CREATININE 1.07 mg/dL (0.55-1.02); LIPASE 394 U/L (73-393); POTASSIUM 4.5 mmol/L (3.5-5.1); SGOT/AST 28 IU/L (3-35); SGPT/ALT 27 U/L (12-78); SODIUM 137 mmol/L (136-145); TOTAL PROTEIN 6.6 gm/dL (6.4-8.2)
[2021-02-18 10:22] LABS: TROPONIN I 0.072 ng/ml (<0.045)
[2021-02-18 12:41] LABS: BILIRUBIN Negative (Negative); BLOOD Negative (Negative); CLARITY Clear (Clear); COLOR Yellow (Yellow); GLUCOSE Negative (Negative); KETONE Negative (Negative); LEUKO ESTERASE 2+ (Negative); NITRITE Negative (Negative); UROBILINOGEN 0.2 E.U./dl (0.0-1.0)
[2021-02-18 13:02] LABS: BACTERIA 1+; WBC 16-20 wbc/hpf (0-5)
[2021-02-18 17:41] VITALS: BP 168/62
[2021-02-18] MEDS ORDERED: METOCLOPRAMIDE5 MG PO (17:41)
[2021-02-18] MEDS ORDERED: GAVILYTE C WI PO (17:43)
[2021-02-18 17:46] VITALS: BP 138/51
[2021-02-18 20:00] VITALS: BP 165/57
[2021-02-19] VITALS: BP 154/68
[2021-02-19 06:02] LABS: BASO % 0.5 % (0.0-1.0); EOS # 0.2 10*3/uL (0.0-0.4); EOS % 2.6 % (1.0-4.0); HEMATOCRIT 33.8 % (37.0-47.0); LYMPH # 1.7 10*3/uL (1.3-4.4); LYMPH % 22.6 % (27.0-41.0); MEAN CELL VOLUME 92.9 fl (81.0-99.0); MEAN CORPUSCULAR HGB 29.7 pg (27.0-31.0); MEAN PLATELET VOLUME 9.2 fl (9.6-12.3); MONO # 0.7 10*3/uL (0.1-1.0); MONO % 9.7 % (3.0-9.0); NEUT # 4.7 10*3/uL (2.3-7.9); NEUT % 64.2 % (47.0-73.0); PLATELET COUNT AUTOMATED 241 10*3/uL (130-400); RED BLOOD COUNT 3.64 10*6/uL (4.10-5.10); RED CELL DISTRI WIDTH 14.5 % (0-14.5); WHITE BLOOD COUNT 7.3 10*3/uL (4.8-10.8)
[2021-02-19 06:12] LABS: BUN 16 mg/dl (7-24); CHLORIDE 108 mmol/L (98-107); CREATININE 0.91 mg/dL (0.55-1.02); POTASSIUM 3.7 mmol/L (3.5-5.1); SODIUM 140 mmol/L (136-145)
[2021-02-19 08:00] VITALS: BP 126/57
[2021-02-19 12:00] VITALS: BP 148/57
[2021-02-19 16:00] VITALS: BP 109/54
[2021-02-19 20:00] VITALS: BP 122/46
[2021-02-20] VITALS: BP 135/52
[2021-02-20 08:00] VITALS: BP 136/44
[2021-02-20 12:00] VITALS: BP 127/50
[2021-02-20 16:00] VITALS: BP 104/50
[2021-02-20 20:00] VITALS: BP 111/43
[2021-02-21] VITALS: BP 109/51
[2021-02-21 08:00] VITALS: BP 143/50
[2021-02-21 12:00] VITALS: BP 96/98
[2021-02-21 16:00] VITALS: BP 115/50
== END 2021-02-21 19:33 | DRG 689 ==
LOC: ED 09:16 → 4E 14:17 → EDHOLD 14:17 → 4E 17:19
PROVIDERS: Emergency Medicine; Student in an Organized Health Care Education/Training Program; ADMIT Internal Medicine; ATTEND Internal Medicine
DX: N30.00 Acute cystitis without hematuria (principal); N17.0 Acute kidney failure with tubular necrosis; I24.8 Other forms of acute ischemic heart disease; K21.9 Gastro-esophageal reflux disease without esophagitis; I48.0 Paroxysmal atrial fibrillation; I25.10 Atherosclerotic heart disease of native coronary artery without angina pectoris; I71.4 Abdominal aortic aneurysm, without rupture; E86.0 Dehydration; D64.9 Anemia, unspecified; M06.9 Rheumatoid arthritis, unspecified; E03.9 Hypothyroidism, unspecified; E78.2 Mixed hyperlipidemia; N18.30 Chronic kidney disease, stage 3 unspecified; M79.7 Fibromyalgia; I12.9 Hypertensive chronic kidney disease with stage 1 through stage 4 chronic kidney disease, or unspecified chronic kidney disease; R77.8 Other specified abnormalities of plasma proteins; Z20.822 Contact with and (suspected) exposure to COVID-19; Z90.710 Acquired absence of both cervix and uterus; Z87.891 Personal history of nicotine dependence; Z82.49 Family history of ischemic heart disease and other diseases of the circulatory system; Z79.82 Long term (current) use of aspirin; Z79.899 Other long term (current) drug therapy

== ENCOUNTER 2024-03-05 19:00 | Emergency (ER) | payer MEDICARE ==
[~2024-03-05] VITALS: Ht 160 cm; Wt 56.3 kg
[~2024-03-05 19:00] MED LIST changes: +GAVILYTE C WI PO; -LEVOTHYROXINE137 MCG PO; +METOCLOPRAMIDE5 MG PO; +Synthroid,Lev100 MCG PO
[2024-03-05 19:05] VITALS: BP 146/62
[2024-03-05] MEDS ORDERED: ARTIFICIAL TEAR1512 OU (19:22)
[2024-03-05] MEDS ORDERED: REFRESH LIQUIGE15 M1 OU (19:26)
[2024-03-05 20:08] LABS: BASO % 0.4 % (0.0-1.0); EOS # 0.3 10*3/uL (0.0-0.4); EOS % 3.7 % (1.0-4.0); HEMATOCRIT 34.2 % (37.0-47.0); LYMPH # 1.7 10*3/uL (1.3-4.4); LYMPH % 18.8 % (27.0-41.0); MEAN CELL VOLUME 88.1 fl (81.0-99.0); MEAN CORPUSCULAR HGB 28.9 pg (27.0-31.0); MEAN CORPUSCULAR HGB CONC 32.7 g/dl (33.0-37.0); MONO # 1.2 10*3/uL (0.1-1.0); MONO % 13.1 % (3.0-9.0); NEUT # 5.7 10*3/uL (2.3-7.9); NEUT % 63.7 % (47.0-73.0); PLATELET COUNT AUTOMATED 217 10*3/uL (130-400); RED BLOOD COUNT 3.88 10*6/uL (4.10-5.10); RED CELL DISTRI WIDTH 14.5 % (0-14.5)
[2024-03-05] MEDS ORDERED: ACETAMINOPHEN 325 MG TAB PO ONE (20:45)
== END 2024-03-05 21:04 | disposition home or self-care (01) ==
LOC: ED 19:00
PROVIDERS: Internal Medicine
DX: S80.00XA Contusion of unspecified knee, initial encounter (principal); M25.511 Pain in right shoulder; M19.90 Unspecified osteoarthritis, unspecified site; Z86.73 Personal history of transient ischemic attack (TIA), and cerebral infarction without residual deficits; E03.9 Hypothyroidism, unspecified; K21.9 Gastro-esophageal reflux disease without esophagitis; E78.5 Hyperlipidemia, unspecified; M79.7 Fibromyalgia; I12.9 Hypertensive chronic kidney disease with stage 1 through stage 4 chronic kidney disease, or unspecified chronic kidney disease; N18.9 Chronic kidney disease, unspecified; Z90.710 Acquired absence of both cervix and uterus; Z95.5 Presence of coronary angioplasty implant and graft; Z90.89 Acquired absence of other organs; Z98.890 Other specified postprocedural states; Z90.49 Acquired absence of other specified parts of digestive tract; Z87.891 Personal history of nicotine dependence; W19.XXXA Unspecified fall, initial encounter; Y93.E5 Activity, floor mopping and cleaning; Y92.129 Unspecified place in nursing home as the place of occurrence of the external cause; Y99.8 Other external cause status

== ENCOUNTER → 2024-10-17 | Outpatient (CLI) | payer MEDICARE ==
[~2024-10-17] MED LIST changes: +ARTIFICIAL TEAR1512 OU; +OMNICEF300 MG PO; +REFRESH LIQUIGE15 M1 OU
== END | disposition home or self-care (01) ==
LOC: MRI 10-14 01:27
DX: J32.3 Chronic sphenoidal sinusitis (principal); I67.82 Cerebral ischemia; H74.8X1 Other specified disorders of right middle ear and mastoid; R53.1 Weakness

== ENCOUNTER 2025-02-18 15:50 | Emergency (ER) | payer MEDICARE ==
[~2025-02-18] VITALS: Wt 59.0 kg
[~2025-02-18 15:50] MED LIST changes: +AMOX-CLAV 875-1 EACH PO; +SYNTHROID,LEV112 MCG PO
[2025-02-18] MEDS ORDERED: SODIUM CHLORIDE 0.9% 1,000 ML IV ONE (16:05)
[2025-02-18] MEDS ORDERED: DULOXETINE HCL30 MG PO (16:06)
[2025-02-18] MEDS ORDERED: SINEMET 25-1001 EACH PO (16:11)
[2025-02-18 16:17] LABS: BASO # 0.0 10*3/uL (0.0-0.1); BASO % 0.3 % (0.0-1.0); EOS # 0.0 10*3/uL (0.0-0.4); EOS % 0.2 % (1.0-4.0); MEAN CELL VOLUME 83.6 fl (81.0-99.0); MEAN CORPUSCULAR HGB 27.8 pg (27.0-31.0); MEAN PLATELET VOLUME 8.6 fl (9.6-12.3); MONO # 0.5 10*3/uL (0.1-1.0); MONO % 5.2 % (3.0-9.0); NEUT # 8.5 10*3/uL (2.3-7.9); NEUT % 82.6 % (47.0-73.0); NUCLEATED RED BLOOD CELL 0.0 % (0.0-0.0); NUCLEATED RED BLOOD CELL 0.0 10*3/uL (0.0-0.0); PLATELET COUNT AUTOMATED 299 10*3/uL (130-400); RED CELL DISTRI WIDTH 13.8 % (0-14.5)
[2025-02-18 16:38] LABS: BUN 19.0 mg/dl (9-23); SGPT/ALT 8.0 U/L (5-49)
[2025-02-18 16:59] LABS: ACT PARTIAL THROMBO TIME 31.0 SECONDS (20.0-32.1)
[2025-02-18 17:55] LABS: BILIRUBIN Negative (Negative); BLOOD Negative (Negative); CLARITY Clear (Clear); COLOR Yellow (Yellow); KETONE Trace (Negative); LEUKO ESTERASE Negative (Negative); NITRITE Negative (Negative); PH 5.0 (4.5-8.0); SPECIFIC GRAVITY 1.020 (1.001-1.030); UROBILINOGEN 0.2 E.U./dl (0.0-1.0)
[2025-02-18 18:02] LABS: HYALINE CAST 0-2; MUCOUS TRACE; RBC 0-2 rbc/hpf (0-2); WBC 0-2 wbc/hpf (0-5)
[2025-02-18 18:23] VITALS: BP 152/68
== END 2025-02-18 19:20 | disposition home or self-care (01) ==
LOC: ED 15:50
PROVIDERS: Internal Medicine
DX: E87.1 Hypo-osmolality and hyponatremia (principal); E86.0 Dehydration; T50.905A Adverse effect of unspecified drugs, medicaments and biological substances, initial encounter; Z79.82 Long term (current) use of aspirin; Z79.899 Other long term (current) drug therapy; Z90.710 Acquired absence of both cervix and uterus; Z90.89 Acquired absence of other organs; Z98.890 Other specified postprocedural states; Y92.89 Other specified places as the place of occurrence of the external cause